=== PATIENT | female | born 1980 | race Caucasian/White ===

== ENCOUNTER 2024-03-22 00:11 | Emergency (ER) | payer OTHER, SELFPAY ==
[2024-03-22 00:21] VITALS: BP 153/74; PULSE 89; RESP 20; TEMP 36.8; O2SAT 98; BMI 21.9
--- NOTE | 2024-03-22 00:54 | ED_ITS ---
HPI - Allergic Reaction General Date Seen: 03/22/24 Chief complaint: Allergic Reaction Stated complaint: allergic reaction Time Seen by Provider: 03/22/24 00:32 Source: patient Mode of arrival: ambulatory Limitations: no limitations History of Present Illness HPI narrative: 43-year-old female with a history of allergy to bee stings who presents after being stung on her left shoulder several times today. She put on a sweatshirt and there must have been a bee inside and it is done multiple times. We discussed that this likely means that it was not to be but rather a wasp or hornet. She used a topical Benadryl and a homeopathic medication orally and presents for further evaluation. With her previous stings the reaction is always different. One time it was a local reaction because her entire legs swell. One time she had a syncopal episode and persistent tachycardia. She has never had any lip or tongue swelling or trouble breathing. She has not had those problems this time either. Related Data Allergies Allergy/AdvReac Type Severity Reaction Status Date / Time bee venom protein (honey bee) Allergy Unknown Unverified 03/22/24 01:01 Review of Systems Narrative Review of systems is as outlined above otherwise noted to be negative. PFSH PFS Social History Smoking Status: Unknown if ever smoked Do you use any of these nicotine containing products: None How often do you have a drink containing alcohol: never AUDIT-C Alcohol total score: 0 Non-prescribed substance use: denies use Exam Narrative: Exam Narrative: Vitals noted. HEENT: Conjunctiva clear. Tympanic membranes are pearly white bilaterally. Posterior pharynx is clear without erythema or exudate. No lip or tongue swelling. Neck is supple without adenopathy, thyromegaly. Lungs: Clear to auscultation in all romo. No wheezes, rales, rhonchi. Heart: Regular rate and rhythm without murmur. Extremities: No cyanosis or edema. Good distal pulses. Skin: No abnormalities noted of the exposed skin. Neurologic: Awake, alert, fully oriented. Neurologic exam is nonfocal. Const: Vital Signs, click to edit/add: Vital Signs - 24 hr 03/22/24 00:21 03/22/24 01:09 Temperature 98.3 F Pulse Rate [Left P ulse Oximeter] 89 82 Respiratory Rate 20 18 Blood Pressure [Le ft Upper Arm] 153/74 H Pulse Oximetry 98 Oxygen Delivery Me thod Room Air Course Course ED Course: Patient is seen and examined. She is given hydroxyzine 50 mg orally. She demonstrated no sign of systemic reaction to this staying. She is comfortable returning home. Vital Signs Vital signs: Initial Vital Signs Temperature 98.3 F 03/22/24 00:21 Temperature Source Temporal Artery Scan 03/22/24 00:21 Pulse Rate 89 03/22/24 00:21 Pulse Rhythm Regular 03/22/24 00:21 Respiratory Rate 20 03/22/24 00:21 Blood Pressure 153/74 H 03/22/24 00:21 Blood Pressure Mean 100 03/22/24 00:21 Blood Pressure Position Supine 03/22/24 00:21 Pulse Oximetry 98 03/22/24 00:21 Oxygen Delivery Method Room Air 03/22/24 00:21 Vital Signs Temperature 98.3 F 03/22/24 00:21 Pulse Rate 89 03/22/24 00:21 Respiratory Rate 20 03/22/24 00:21 Blood Pressure 153/74 H 03/22/24 00:21 Pulse Oximetry 98 03/22/24 00:21 Oxygen Delivery Method Room Air 03/22/24 00:21 Temperature 98.3 F 03/22/24 00:21 Pulse Rate 82 03/22/24 01:09 Respiratory Rate 18 03/22/24 01:09 Blood Pressure 153/74 H 03/22/24 00:21 Pulse Oximetry 98 03/22/24 00:21 Oxygen Delivery Method Room Air 03/22/24 00:21 Medications Administered Medications: Discontinued Medications Generic Name Dose Route Start Last Admin Trade Name Hughq PRN Reason Stop Dose Admin Hydroxyzine Pamoate 50 mg 03/22/24 00:48 03/22/24 01:00 Hydroxyzine Pamoate 25 Mg Capsule PO 03/22/24 00:49 50 mg ONCE ONE Administration Discharge Plan Discharge Clinical Impression: Allergic reaction Patient Disposition: Home, Self-Care Condition: Improved Additional Instructions: Benadryl 25 mg every 6 hours as needed for itching or swelling. Cold packs. If he develops any lip or tongue swelling or constriction of your breathing please use your EpiPen. Follow-up with your PCP to discuss RAST testing to determine which type of insect you are actually allergic to. Stand Alone Forms: Loop Trolley Info Instructions
[2024-03-22] MEDS: hydrOXYzine pamoate 25 MG CAPSULE 50 MG PO (01:00)
--- OUTSIDE RECORDS SUMMARY | 2024-03-22 01:07 | XMS_ITS | Encounter Summary ---
Author Organization [facility] Address [address] [place] [id number] Care Team Providers Care Personal Banking Assistant Name Role Phone Monica Recinos APRN GUEST SERVICES ASSISTANT Unavailable Monica Recinos APRN GUEST SERVICES ASSISTANT Primary Care Pro vider Reason for Visit * Rehab Therapy Integrated Services (Routine: Next available opening) - Referral NOT Required Specialty Diagnoses / Procedures Referred By Cathy nelson Referred To Contact Diagnoses Right wrist pain Strain of right wrist, initial encounter [address] [address] Referral ID Status Reason Start Date Expiration Date V isits Requested Visits Authorized [id number] Referral NOT Required 02/15/2024 10/08/2024 365 [id number] Encounter Details Date Type Department Care Team (Latest Contact Info) Description 02/16/2024 1:00 PM CDT Therapy Visit [facility] [id number] [place] [address] [address] [place], [place] [id number] Jr Tobias MD [address] [place] [address] DR COREY [address] [place] [phone] Nazia Danielle OT [address] [place] [phone] Right wrist pain (Primary Dx); Strain of right wrist, initial encounter Social History Tobacco Use Types Packs/Day Years Used Date Smoking Tobacco: Never Smokeless Tobacco: Never Alcohol Use Standard Drinks/Week Comments Yes 0 (1 standard drink = 0.6 oz pur e alcohol) Social Connection and Isolat ion Panel [NHANES] Answer Date Recorded Frequency of Communication w ith Friends and Family Not on file 01/03/2024 How often do you get togethe r with friends or relatives? More than three times a week 01/03/2024 Attends [employer] Services Not on file 01/02 Active Member of Clubs or Organizations Not on f ile 01/03/2024 Attends Club or Organization Meetings Not on scott e 01/03/2024 Marital Status Not on file 01/03/2024 AUDIT-C Answer Date Recorded Q1: How often do you have a drink containing alc ohol? Monthly or less 08/29/2022 Q2: How many drinks containi ng alcohol do you have on a typical day when you are drinking? 1 or 2 08/29/2022 Q3: How often do you have si x or more drinks on one occasion? Never 08/29/2022 PHQ-2 Answer Date Recorded PHQ-2 Score 0 01/03/2024 [facility] - Occupational Stress Questionnaire Answer Date Recorded Do you feel stress - tense, restless, nervous, or anxious, or unable to sleep at night because your mind is troubled all the time - these days? Not at all 01/03/2024 Exercise Vital Sign Answer Date Recorde d On average, how many days pe r week do you engage in moderate to strenuous exercise (like a brisk walk)? 7 days Minutes of Exercise per Session Not on file 01/03/2024 Adolescent Education Answer Date Record ed Getting School Help Needed Not on file 06/30 Food Insecurity Answer Date Recorded Within the past 12 months, d id you worry that your food would run out before you got money to buy more? No 01/03/2024 Within the past 12 months, d id the food you bought just not last and you didn? t have money to get more? No 01/03/2024 Housing Stability Answer Date Recorded Do you have housing? Yes 01/03/2024 Are you worried about losing your housing? No 01/03/2024 Financial Resource Strain Answer Date R ecorded Within the past 12 months, h ave you or your family members you live with been unable to get utilities (heat, electricity) when it was really needed? No 01/03/2024 Transportation Needs Answer Date Record ed Within the past 12 months, h as lack of transportation kept you from medical appointments, getting your medicines, non-medical meetings or appointments, work, or from getting things that you need? No 01/03/2024 Interpersonal Safety Answer Date Record ed Do you feel physically and e motionally safe where you currently live? Yes 01/03/2024 Within the past 12 months, h ave you been hit, slapped, kicked or otherwise physically hurt by someone? No 01/03/2024 Within the past 12 months, h ave you been humiliated or emotionally abused in other ways by your partner or ex-partner? No 01/03/2024 Sex and Gender Information Value Date Recorded Sex Assigned at Female 05/03/2022 3:21 PM CDT Gender Identity Female 05/03/2022 3:21 PM CDT Sexual Orientation Straight 05/03/2022 3: 21 PM CDT documented as of this encounter Progress Notes * Nazia Danielle, OT - 02/16/2024 1:00 PM CDT OCCUPATIONAL THERAPY EVALUATION Type of Visit: Evaluation See electronic medical record for Abuse and Falls Screening details. Subjective Presenting condition or subjective complaint: Wrist pain Date of onset: 01/31/24 (order date) Relevant medical history: Past Medical History: Diagnosis Date Abnormal Pap smear of cervix Dates & types of surgery: Past Surgical History: Procedure Laterality Date LEEP [place], CERVICAL 2005 Prior diagnostic imaging/testing results: Prior therapy history for the same diagnosis, illness or injury: No Prior Level of Function Transfers: Independent Ambulation: Independent ADL: Independent Living Environment Social support: With a significant other or spouse Type of home: House Stairs to enter the home: Yes 2 Is there a railing: No Ramp: No Stairs inside the home: Yes 10 Is there a railing: Yes Help at home: None Equipment owned: Employment: Yes Hobbies/Interests: Patient goals for therapy: Yoga and work out and garden Pain assessment: Objective ADDITIONAL HISTORY: Right hand dominant Patient reports symptoms of pain, stiffness/loss of motion, and weakness/loss of strength Transportation: drives Currently working in normal job without restrictions Functional Outcome Measure: Upper Extremity Functional Index Score: SCORE: Column Totals: /80: 70 (A lower score indicates greater disability.) PAIN: Pain Level at Rest: 0/10 Pain Level with Use: 7/10 Pain Location: wrist Pain Quality: Sharp and pinching Pain Frequency: intermittent Pain is Worst: daytime Pain is Exacerbated By: weightbearing when wrist is extended, chopping harder vegetables Pain is Relieved By: cold, stretch, and modifying activities Pain Progression: Unchanged SENSATION: WNL throughout all nerve distributions; per patient report ROM: Wrist ROM Left AROM Right AROM Extension 58 65 Flexion 60 60 Radial Deviation (RD) 13 15 Ulnar Deviation (UD) 24 30 UD with Th Flex Supination WNL WNL Pronation WNL WNL STRENGTH: Pet Resort Concierge Measured in pounds 02/16/2024 02/16/2024 Left Right Trial 1 55 57 Trial 2 Trial 3 Average Weight bearing/push-off test Measured in pounds 02/16/2024 02/16/2024 Left Right Trial 1 56 16 pre 28 post Trial 2 Trial 3 Average Lateral Pinch Measured in pounds 02/16/2024 02/16/2024 Left Right Trial 1 14 14 Trial 2 Trial 3 Average 3 Point Pinch Measured in pounds 02/16/2024 02/16/2024 Left Right Trial 1 14 14 Trial 2 Trial 3 Average Tenderness: Pain level report on scale 0-10/10 WRIST PALPATION: Date 02/16/2024 Side R Volar Scaphoid - Dorsal Scaphoid + Volar Lunate - Dorsal Lunate -/+ Central Dorsal Zone: (+ for hypermobile or - for hypomobile) Pain 0-10/10 02/16/2024 SIDE R Finger Extension Test (SL--in wrist flex, resist long ext) + Land Test (SL) - Linscheid Test (CMC joints--stabilize distal MC, mob CMC) NT Ballottement Scaphoid on Lunate + Assessment & Plan CLINICAL IMPRESSIONS Medical Diagnosis: Right wrist pain, right wrist strain Treatment Diagnosis: Right wrist pain Impression/Assessment: Pt is a 43 year old female presenting to Occupational Therapy due to gradualonset, persistent for 1 year. The following significant findings have been identified: Impaired strength and Pain. 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 Clinical Decision Making (Complexity): Assessment of Occupational Performance: 5 or more Performance Deficits Occupational Performance Limitations: bathing/showering, toileting, functional mobility, driving and community mobility, health management and maintenance, home establishment and management, meal preparation and cleanup, work, and leisure activities Clinical Decision Making (Complexity): Low complexity PLAN OF CARE Treatment Interventions: Modalities: Hot Packs and Paraffin Therapeutic Exercise: AROM, AAROM, PROM, Tendon Gliding, Blocking, Reverse Blocking, Place and Hold, Contract Relax, Extensor Tracking, Isotonics, Isometrics and Stabilization Neuromuscular re-education: Nerve Gliding, Coordination/Dexterity, Sensory re- education, Desensitization, Kinesthetic Training, Proprioceptive Training, Kinesiotaping, Strain Counter Strain, Isometrics, Stabilization Manual Techniques: Coordination/Dexterity, Joint mobilization, Scar mobilization, Friction massage,Myofascial release, and Manual edema mobilization Orthotic Fabrication: Static and Hand based Self Care: Self Care Tasks and Ergonomic Considerations Mcfp Goals OT Goal 3 Goal Identifier: ADL - bathing Goal Description: Mild to no difficulty weight bearing needed for functional transfers Rationale: In order to maximize safety and independence with functional transfers and functional mobility within the home or community Target Date: 04/12/24 Frequency of Treatment: 1x/week Duration of Treatment: 4 weeks, tapering to biweekly for 4 weeks Recommended Referrals to Other Professionals: Education Assessment: Learner/Method: Patient;Demonstration Education Comments: PTRX on phone Risks and benefits of evaluation/treatment have been explained. Patient/Family/caregiver agrees with Plan of Care. Evaluation Time: Cameron Chandler Minutes ([id number]): 28 Signing Clinician: Nazia Danielle OT documented in this encounter Plan of Treatment Not on file documented as of this encounter Visit Diagnoses Diagnosis Right wrist pain- Primary Pain in joint, forearm Strain of right wrist, initial encounter documented in this encounter Care Teams Personal Banking Assistant Relationship Specialty Start Date End Date Monica Recinos APRN GUEST SERVICES ASSISTANT [facility] [facility] [place] [address] PCP - General Internal Medicine - Pediatrics 12/10/20 Monica Recinos APRN GUEST SERVICES ASSISTANT [address] [facility] [address] [place] [id number] Assigned PCP 01/18/19 documented as of this encounter
--- OUTSIDE RECORDS SUMMARY | 2024-03-22 01:07 | XMS_ITS | Encounter Summary ---
Author Organization [facility] Address [address] [place] [address] Care Team Providers Care Nursing Attendant Name Role Phone Monica Recinos APRN MINERAL RESOURCES INSPECTOR Unavailable Monica Recinos APRN MINERAL RESOURCES INSPECTOR Primary Care Pro vider Reason for Referral * Rehab Therapy Integrated Services (Routine: Next available opening) - Referral NOT Required Specialty Diagnoses / Procedures Referred By Cathy nelson Referred To Contact Diagnoses Right wrist pain Strain of right wrist, initial encounter [address] [address] Referral ID Status Reason Start Date Expiration Date V isits Requested Visits Authorized [id number] Referral NOT Required 02/15/2024 10/08/2024 365 365 Question Answer Course of Action: Evaluation and Treatment Specialty Services: Hand Therapy Service: Evaluate and Treat Scheduling Instructions: [facility] will call you to coordinate your care as prescribed by your provider. If you don't hear from a field marketing representative within 2 business days, please call . Comments Please be aware that coverage of these services is subject to the terms and limitations of your health insurance plan. Call member services at your health plan with any benefit or coverage questions. [facility] will call you to coordinate your care as prescribed by your provider. If you don't hear from a field marketing representative within 2 business days, please call . Reason for Visit * Reason Comments Pain * Consultation (Routine) - Pending Review Specialty Diagnoses / Procedures Referred By Cathy nelson Referred To Contact Diagnoses Right wrist pain Giovanna Deshpande MD [address] [place] [address] Referral ID Status Reason Start Date Expiration Date V isits Requested Visits Authorized [id number] Pending Review 01/03/2024 01/02/2025 1 1 Encounter Details Date Type Department Care Team (Late st Contact Info) Description 01/31/2024 9:20 AM CDT Office Visit [facility] [place] [address] [place], [place] [address] Giovanna Deshpande MD [address] [place] [address] [place] [address] [place], [place] [id number] Strain of right wrist, initial encounter (Primary Dx); Right wrist pain Social History Tobacco Use Types Packs/Day Years Used Date Smoking Tobacco: Never Smokeless Tobacco: Never Tobacco Cessation:Counseling Given: Yes Alcohol Use Standard Drinks/Week Comments Yes 0 (1 standard drink = 0.6 oz pur e alcohol) Social Connection and Isolat ion Panel [NHANES] Answer Date Recorded Frequency of Communication w ith Friends and Family Not on file 01/03/2024 How often do you get togethe r with friends or relatives? More than three times a week 01/03/2024 Attends Ca[employer] Services Not on file 01/02 Active Member [...] Answer Date Recorded PHQ-2 Score 0 01/03/2024 [place] [facility] - Occupational Stress [...] PM CDT documented as of this encounter Last Filed Vital Signs Vital Sign Reading Time Taken Comments Blood Pressure 118/66 01/31/2024 9:06 AM CDT Pulse - - Temperature - - Respiratory Rate - - Oxygen Saturation - - Inhaled Oxygen Concentration - - Weight 56.7 kg (125 lb) 01/31/2024 9:06 AM CDT Height 157 cm (5' 1.81) 01/31/2024 9:06 AM CDT Body Mass Index 23 01/31/2024 9:06 AM CDT documented in this encounter Patient Instructions * Patient Instructions* Jr Tobias MD - 01/31/2024 9:20 AM CDT 1. Strain of right wrist, initial encounter 2. Right wrist pain -Patient has right wrist pain with extension due to inflammation and strain of the wrist -Patient will start formal hand therapy and home exercise program -Patient will modify her weight training workouts that was not to overstress the joints. She may purchase wrist straps or workup close with a wrist strap to stabilize her wrist while she is exercising. Patient may purchase handles to use while doing push-ups -Patient may try [id number]-[id number] topical Voltaren gel to be applied to the wrist 2-3 times a day as needed for pain. Patient will apply ice as needed for pain and inflammation -Patient will follow-up if pain does not improve -Call direct clinic number [[phone]] at any time with questions or concerns. Jr Tobias MD [facility] Orthopedics and Sports Medicine [facility] documented in this encounter Progress Notes * Jr Tobias MD - 01/31/2024 9:20 AM CDT ASSESSMENT & PLAN Patient Instructions 1. Strain of right wrist, initial encounter 2. Right wrist pain -Patient has right wrist pain with extension due to inflammation and strain of the wrist -Patient will start formal hand therapy and home exercise program -Patient will modify her weight training workouts that was not to overstress the joints. She may purchase wrist straps or workup close with a wrist strap to stabilize her wrist while she is exercising. Patient may purchase handles to use while doing push-ups -Patient may try teav-rys-[id number] topical Voltaren gel to be applied to the wrist 2-3 times a day as needed for pain. Patient will apply ice as needed for pain and inflammation -Patient will follow-up if pain does not improve -Call direct clinic number [[phone]] at any time with questions or concerns. Jr [facility] ----- SUBJECTIVE Naomi Boss is a/an 43 year old Right handed female who is seen in consultation at the request ofGiovanna Deshpande M.D. for evaluation of right wrist pain. The patient is seen by themselves. Onset: 1 years(s) ago. Reports insidious onset without acute precipitating event. Location of Pain: right dorsal wrist and right proximal lateral forearm / elbow, patient noted thatshe initially had pain in right elbow and shoulder but this has improved Rating of Pain at worst: 8/10 Rating of Pain Currently: 3/10 Worsened by: yoga / push ups (forced wrist extension), lifting weights, peeling / chopping potatoes, prolonged typing Better with: rest / activity avoidance Treatments tried: rest/activity avoidance, career center advisor (1-3x/month), and massage therapy Associated symptoms: no distal numbness or tingling; denies swelling or warmth Orthopedic history: NO Relevant surgical history: NO Social history: 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 Past Medical History: Diagnosis Date Abnormal Pap smear of cervix Social History Socioeconomic History Marital status: Single Tobacco Use Smoking status: Never Smokeless tobacco: Never Vaping Use Vaping status: Never Used Substance and Sexual Activity Alcohol use: Yes Drug use: Never Sexual activity: Not Currently Social Determinants of Health Financial Resource Strain: Low Risk (01/03/2024) Financial Resource Strain Within the past 12 months, have you or your family members you live with been unable to get utilities (heat, electricity) when it was really needed?: No Food Insecurity: Low Risk (01/03/2024) Food Insecurity Within the past 12 months, did you worry that your food would run out before you got money to buy more?: No Within the past 12 months, did the food you bought just not last and you didn???t have money to getmore?: No Transportation Needs: Low Risk (01/03/2024) Transportation Needs Within the past 12 months, has lack of transportation kept you from medical appointments, getting your medicines, non-medical meetings or appointments, work, or from getting things that you need?: No Physical Activity: Unknown (01/03/2024) Exercise Vital Sign Days of Exercise per Week: 7 days Stress: No Stress Concern Present (01/03/2024) [place] [facility] - Occupational Stress Questionnaire Feeling of Stress : Not at all Social Connections: Unknown (01/03/2024) Social Connection and Isolation Panel [NHANES] Frequency of Social Gatherings with Friends and Family: More than three times a week Interpersonal Safety: Low Risk (01/03/2024) Interpersonal Safety Do you feel physically and emotionally safe where you currently live?: Yes Within the past 12 months, have you been hit, slapped, kicked or otherwise physically hurt by someone?: No Within the past 12 months, have you been humiliated or emotionally abused in other ways by your partner or ex-partner?: No Housing Stability: Low Risk (01/03/2024) Housing Stability Do you have housing? : Yes Are you worried about losing your housing?: No Patient's past medical, surgical, social, and family histories were reviewed today and no changes are noted. REVIEW OF SYSTEMS: 10 point ROS is negative other than symptoms noted above in HPI, Past Medical History or as stated below Constitutional: NEGATIVE for fever, chills, change in weight Skin: NEGATIVE for worrisome rashes, moles or lesions GI/: NEGATIVE for bowel or bladder changes Neuro: NEGATIVE for weakness, dizziness or paresthesias OBJECTIVE: BP 118/66 Ht 1.57 m (5' 1.81) Wt 56.7 kg (125 lb) LMP 12/26/2023 BMI 23.00 kg/m?? General: healthy, alert and in no distress HEENT: no scleral icterus or conjunctival erythema Skin: no suspicious lesions or rash. No jaundice. CV: regular rhythm by palpation Resp: normal respiratory effort without conversational dyspnea Psych: normal mood and affect Gait: normal steady gait with appropriate coordination and balance Neuro: normal light touch sensory exam of the bilateral hands. MSK: RIGHT HAND Inspection: No swelling or obvious deformity or asymmetry Palpation: Carpals: normal. Tenderness at the radiocarpal joint on the dorsal aspect. Metacarpals: normal Thumb: normal Fingers: normal Range of Motion: Full active flexion and extension at MCP, PIP, and DIP joints; normal finger cascade without malrotation. Wrist pronation, supination, and ulnar/radial deviation normal. Pain at the extreme of extension. Strength: Grossly intact Special Tests: Positive: none Negative: Tinel's, Phalen's, Emil's, flexor digitorum superficialis testing, flexor digitorum profundus testing Independent visualization of the below image: No results found for this or any previous visit (from the past 24 hour(s)). Jr Tobias MD [facility] Sports and Orthopedic Care documented in this encounter Plan of Treatment Scheduled Referrals Name Type Priority Associated Diagnoses Orde r Schedule Hand Therapy Referral Referral Routine: Next available opening Right wrist pain Strain of right wrist, initial encounter Expected: 01/31/2024 (Approximate), Expires: 01/30/2025 documented as of this encounter Visit Diagnoses Diagnosis Strain of right wrist, initial encounter- Primary Right wrist pain Pain in joint, forearm documented in this encounter Care Teams Nursing Attendant Relationship Specialty Start Date End Date Monica Recinos APRN MINERAL RESOURCES INSPECTOR [facility] [place] [address] PCP - General Internal Medicine - Pediatrics 12/10/20 Monica Recinos APRN MINERAL RESOURCES INSPECTOR [facility] [place] [address] Assigned PCP 01/18/19 documented as of this encounter
--- OUTSIDE RECORDS SUMMARY | 2024-03-22 01:07 | XMS_ITS | Encounter Summary ---
Author Organization [facility] Address [address] [place] [address] Care Team Providers Care Hospice Community Liaison Name Role Phone Monica Recinos APRN ENVIRONMENTAL EPIDEMIOLOGIST Unavailable Monica Recinos APRN ENVIRONMENTAL EPIDEMIOLOGIST Primary Care Pro vider Reason for Visit * Rehab Therapy Integrated Services (Routine: Next available opening) - Referral NOT Required Specialty Diagnoses / Procedures Referred By Cathy nelson Referred To Contact Diagnoses Right wrist pain Strain of right wrist, initial encounter [address] [address] Referral ID Status Reason Start Date Expiration Date V isits Requested Visits Authorized [id number] Referral NOT Required 02/15/2024 10/08/2024 365 365 Encounter Details Date Type Department Care Team (Latest Contact Info) Description 02/23/2024 10:00 AM CDT Therapy Visit [facility] [id number] [place] [address] [address] [place], [place] [address] Jr Tobias MD [address] [place] [address] DR COREY [address] [place] [address] Nazia Danielle OT [address] [place] [id number] Right wrist pain (Primary Dx); Strain of [...] than three times a week 01/03/2024 Attends [employer]az[employer] Services Not on file 01/02 Active Member [...] Answer Date Recorded PHQ-2 Score 0 01/03/2024 [facility]at ional Health - Occupational Stress [...] PM CDT documented as of this encounter Plan of Treatment Not on file documented as of this encounter Visit Diagnoses Diagnosis Right wrist pain- Primary Pain in joint, forearm Strain of right wrist, initial encounter documented in this encounter Care Teams Hospice Community Liaison Relationship Specialty Start Date End Date Monica Recinos APRN ENVIRONMENTAL EPIDEMIOLOGIST [facility] [place] [address] PCP - General Internal Medicine - Pediatrics 12/10/20 Monica Recinos APRN ENVIRONMENTAL EPIDEMIOLOGIST [address] [place] [address] [place] [address] Assigned PCP 01/18/19 documented as of this encounter
--- OUTSIDE RECORDS SUMMARY | 2024-03-22 01:07 | XMS_ITS | Encounter Summary ---
Author Organization [facility] Address [address] [place] [address] Care Team Providers Care Track Greaser Name Role Phone Monica Recinos APRN CHAINSTITCH ZIPPER SETTER Unavailable Monica Recinos APRN CHAINSTITCH ZIPPER SETTER Primary Care Pro vider Jr Tobias MD Unavailable Reason for Referral * Diagnostic Imaging Mammo (Routine) - Pending Review Specialty Diagnoses / Procedures Referred By Contac t Referred To Contact Radiology. Diagnoses Visit for screening mammogram Procedures *[place] Screening [place] [address] [place] [id number] Referral ID Status Reason Start Date Expiration Date V isits Requested Visits Authorized [id number] Pending Review 01/03/2024 01/02/2025 1 1 Reason for Visit * Diagnostic Imaging Mammo (Routine) - Pending Review Specialty Diagnoses / Procedures Referred By Contcherise nelson Referred To Contact Radiology. Diagnoses Visit for screening mammogram Procedures *[place] Screening [place] [address] [place] [id number] Referral ID Status Reason Start Date Expiration Date V isits Requested Visits Authorized [id number] Pending Review 01/03/2024 01/02/2025 1 1 Encounter Details Date Type Department Care Team (Latest Contact Info) Description 03/06/2024 9:02 AM CDT - 03/06/2024 11:59 PM CDT Hospital Encounter [facility] [address] [facility], [address] [place] [address] Giovanna Deshpande MD [address] [place], [place] [id number] Visit for screening mammogram Discharge Disposition: Home or Self Care Social History Tobacco Use Types Packs/Day Years [...] than three times a week 01/03/2024 Attends Scientology Services Not on file 01/02 Active Member [...] Answer Date Recorded PHQ-2 Score 0 01/03/2024 [facility] Occupat ional Health - Occupational Stress [...] PM CDT documented as of this encounter Medications at Time of Discharge Medication Sig Dispensed Refills Start Date End Date EPINEPHrine (ANY BX GENERIC EQUIV) 0.3 MG/0.3ML injection 2-packIndications:Bee allergy status Inject 0.3 mLs (0.3 mg) into the muscle as needed for anaphylaxis May repeat one time in 5-15 minutes if response to initial dose is inadequate. 2 each 3 01/03/2024 vitamin B complex with vitamin C (VITAMIN B COMPLEX) tablet Take 1 tablet by mouth daily documented as of this encounter Plan of Treatment Not on file documented as of this encounter Procedures Procedure Name Priority Date/Time Associated Diagnosis Comments MA SCREENING DIGITAL BILATERAL Routine 03/06/2024 9:32 AM CDT Visit for screening mammogram documented in this encounter Results * *MA Screening Digital Bilateral (03/06/2024 9:32 AM CDT) Anatomical Region Laterality Modality Breast Bilateral Mammography Impressions 03/06/2024 2:38 PM CDT IMPRESSION: ACR BI-RADS Category 1: Negative BREAST CANCER SCREENING RECOMMENDATION: Routine yearly mammography beginning at age 40 or as discussed with your provider. The results and recommendations of this examination will be communicated to the patient. Josephine Suarez MD Narrative 03/06/2024 2:38 PM CDT BILATERAL FULL FIELD DIGITAL SCREENING MAMMOGRAM Performed on: 03/06/24 No comparisons were made when reading this study. Technique: This study was evaluated with the assistance of Computer-Aided Detection. Findings: The breasts are extremely dense, which lowers the sensitivity of mammography. ??There is no radiographic evidence of malignancy. Giovanna Deshpande MD IMG MAMMOGRAPHY [facility]I RODRIGUE[facility] documented in this encounter Visit Diagnoses Diagnosis Visit for screening mammogram Other screening mammogram documented in this encounter Care Teams Track Greaser Relationship Specialty Start Date End Date Monica Recinos APRN CHAINSTITCH ZIPPER SETTER [address] [facility] [place] [address] PCP - General Internal Medicine - Pediatrics 12/10/20 Monica Recinos APRN CHAINSTITCH ZIPPER SETTER [address] [facility] [place] [address] Assigned PCP 01/18/19 [place] [address] [address] [place] [address] Assigned Musculoskeletal Provider 02/29/24 documented as of this encounter
--- OUTSIDE RECORDS SUMMARY | 2024-03-22 01:07 | XMS_ITS | Encounter Summary ---
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 Services Not on file 01/02 Active Member [...] Answer Date Recorded PHQ-2 Score 0 01/03/2024 [facility] [place] [facility] Occupat ional Health - Occupational Stress [...] documented as of this encounter Visit Diagnoses Not on filedocumented in this encounter Care Teams Flat Folder Relationship Specialty Start Date End Date Monica Recinos APRN TRAVEL SERVICES PROFESSIONAL [address] [facility] [place] [address] PCP - General Internal Medicine - Pediatrics 12/10/20 Monica Recinos APRN TRAVEL SERVICES PROFESSIONAL [address] [facility] [place] [address] Assigned PCP 01/18/19 documented as of this encounter
--- OUTSIDE RECORDS SUMMARY | 2024-03-22 01:07 | XMS_ITS | Clinical Summary ---
Author Organization [place] Address [address] [place] [address] Care Team Providers Care Black Oxide Operator Name Role Phone Monica Recinos APRN ORNAMENT MAKER HAND Unavailable Monica Recinos APRN ORNAMENT MAKER HAND Primary Care Pro vider Jr Tobias MD Unavailable Allergies Active Allergy Reactions Criticality Noted Date Comments Bees Anaphylaxis High 03/11/2021 Medications Medication Sig Dispensed Refills Start Date End Date Status vitamin B complex with vitamin C (VITAMIN B COMPLEX) tablet Take 1 tablet by mouth daily Active EPINEPHrine (ANY BX GENERIC EQUIV) 0.3 MG/0.3ML injection 2-packIndications:Be e allergy status Inject 0.3 mLs (0.3 mg) into the muscle as needed for anaphylaxis May repeat one time in 5-15 minutes if response to initial dose is inadequate. 2 each 3 01/03/2024 Active Active Problems Problem Noted Date Diagnosed Date Right wrist pain 02/16/2024 Strain of right wrist, initial encounter 024 JOHN III (cervical intraepithelial neoplasia III) 08/29/2022 Overview: 2004 LEEP (done for JOHN 3) 01/07/14 [facility]IL pap, + HR HPV 02/2015 LSIL pap, neg HPV 03/31/14 [place] E[facility] - JOHN 1 02/06/15 LSIL pap, neg HPV 8//16 ASCUS pap, neg HPV 8/8/16 ASC-H pap, neg HPV 08/05/16 [place] Bx & ECC - negative 09/04/17 NIL Pap, Neg HPV 01/03/24 NIL Pap, Neg HPV. Plan cotest in 1 year. Abnormal Pap smear of cervix Overview: 2004 LEEP 2013 LSIL+HPV-colp JOHN 1-recommend co-testing in 1 year 02/2015 LSIL pap 04/2015 [facility] appearance on colp-no Bx 05/2016 OEF-Z-tquchydf HPV 07/2016 colp-negative ECC and Bx 2016 NIL, Neg HPV. Above per Care Everywhere 02/11/19 NIL, Neg HPV. Plan 3 yr co-test 03/11/21 NIL, Neg HPV. Plan 3 yr co-test Encounters Date Type Department Care Team Description 03/06/2024 9:02 AM CDT - 03/06/2024 11:59 PM CDT Hospital Encounter [facility] [address] [facility], [address] [place] [address] Giovanna Deshpande MD Visit for screening mammogram Discharge Disposition: Home or Self Care 03/06/2024 Travel 03/05/2024 Travel 02/23/2024 10:00 AM CDT Therapy Visit [facility] Specialty [facility] [address] [facility] [address] [place] [address] Jr Tobias MD Burch, Sophia, OT Right wrist pain (Primary Dx); Strain of right wrist, initial encounter 02/22/2024 Travel 02/16/2024 1:00 PM CDT Therapy Visit [facility] [address] [facility] [address] [place] [address] Jr Tobias MD Burch, Sophia, OT Right wrist pain (Primary Dx); Strain of right wrist, initial encounter 02/15/2024 Travel 01/31/2024 9:20 AM CDT Office Visit [facility] [place] [address] [place] [address] [address] [place] [address] Giovanna Deshpande MD Yeo, Albert, MD Strain of right wrist, initial encounter (Primary Dx); Right wrist pain 01/30/2024 Travel 01/03/2024 11:20 AM CDT Office Visit [facility] [address] [facility] [address] [place] [address] Mar Daugherty MD Routine general medical examination at a health care facility (Primary Dx); Screening for cervical cancer; Hx of abnormal cervical Pap smear; Visit for screening mammogram; Right wrist pain; Bee allergy status 01/03/2024 Travel from Last 3 Months Immunizations Name Administration Dates Next Due Anthrax 06/18/2004,06/01/2004,05/11/2004 Historical DTP/aP 07/04/1988, 5,05/25/1984,1983,12/22/1983 Influenza (H1N1) 09/11/2009 Influenza Intranasal Vaccine 07/20/2010,07/22/20 09 MMR 12/29/1993,02/23/1984 Meningococcal (Menomune??) 05/16/2003 Poliovirus, inactivated (IPV) 05/16/2003 ,07/04/1988,07/25/1985,1983,03/29/1984,12/22/1983 Small Pox (Vaccinia) 05/11/2004 TD,PF 7+ (Tenivac) 11/27/2010 TDAP (Adacel,Boostrix) 06/18/2010 Tdap (Adult) Unspecified Formulation 06/18/2010 Twinrix A/B 11/25/2003,06/23/2003,05/23/2003 Typhoid-h-p 05/11/2006,05/11/2004 Social History Tobacco Use Types Packs/Day Years [...] than three times a week 01/03/2024 Attends Mandaeism Services Not on file 01/02 Active Member [...] Answer Date Recorded PHQ-2 Score 0 01/03/2024 [facility] - Occupational Stress Questionnaire Answer [...] Orientation Straight 05/03/2022 3: 21 PM CDT Last Filed Vital Signs Vital Sign Reading Time Taken Comments Blood Pressure 118/66 01/31/2024 9:06 AM CDT Pulse 77 01/03/2024 11:25 AM CDT Temperature 36.7 ??C (98 ??F) 01/03/2024 11:25 AM CDT Respiratory Rate 24 01/03/2024 11:25 AM CDT Oxygen Saturation 99% 01/03/2024 11:25 AM CDT Inhaled Oxygen Concentration - - Weight 56.7 kg (125 lb) 01/31/2024 9:06 AM CDT Height 157 cm (5' 1.81) 01/31/2024 9:06 AM CDT Body Mass Index 23 01/31/2024 9:06 AM CDT Plan of Treatment Health Maintenance Due Date Last Done Comments GLUCOSE 1982 DTAP/TDAP/TD IMMUNIZATION (9 - Td or Tdap) 11/27/2020 11/27/2010, 06/18/2010, 06/18/2010, Additional history exists COVID-19 Vaccine ( season) 2023 ANNUAL REVIEW OF HM ORDERS 08/29/2023 08/29/2022, INFLUENZA VACCINE (Season Ended) 2024 07/20/2010, 09/11/2009, 07/22/2009 HPV FOLLOW-UP 01/02/2025 01/03/2024, 06/0 12/2020, 02/11/2019 PAP FOLLOW-UP 01/02/2025 01/03/2024, 060 12/2020, 02/11/2019, Additional history exists YEARLY PREVENTIVE VISIT 01/02/2025 01/03/20 24, 08/29/2022, 03/11/2021, Additional history exists MAMMO SCREENING 03/06/2026 03/06/2024 LIPID 03/11/2026 03/11/2021 ADVANCE CARE PLANNING 01/02/2029 01/03/2024, 021 IPV IMMUNIZATION Completed 05/16/2003, , 07/25/1985, Additional history exists MENINGITIS IMMUNIZATION Aged Out 05/16/2003 No l onger eligible based on patient's age to complete this topic HEPATITIS B IMMUNIZATION Completed 004, 06/23/2003, 05/23/2003 HIV SCREENING Addressed 02/11/2019 (Declined) Overr idden with the intention of not completing the topic HEPATITIS C SCREENING Completed 03/11/2021 PAP Discontinued 01/03/2024, 06/12/2020, 02/11/2019, Additional history exists PHQ-2 (once per calendar year) Completed 01/03/2024, 08/29/2022, 03/11/2021, Additional history exists HPV IMMUNIZATION Aged Out No longer e ligible based on patient's age to complete this topic Pneumococcal Vaccine: Pediatrics (0 to 5 Years) and At-Risk Patients (6 to 64 Years) Aged Out No longer eligible based on patient's age to complete this topic RSV MONOCLONAL ANTIBODY Aged Out No l onger eligible based on patient's age to complete this topic Procedures Procedure Name Priority Date/Time Associated Diagnosis Comments MA SCREENING DIGITAL BILATERAL Routine 03/06/2024 9:32 AM CDT Visit for screening mammogram HPV HOLD (LAB ONLY) Routine 01/03/2024 1 2:00 PM CDT Screening for cervical cancer Hx of abnormal cervical Pap smear GYNECOLOGIC CYTOLOGY Routine 01/03/2024 12:00 PM CDT Screening for cervical cancer Hx of abnormal cervical Pap smear HPV HIGH RISK TYPES DNA CERVICAL Routine 01/03/2024 12:00 PM CDT Screening for cervical cancer Hx of abnormal cervical Pap smear HEPATITIS C SCREEN REFLEX TO HCV RNA QUANT AND GENOTYPE Routine 03/11/2021 5:09 PM CDT Need for hepatitis C screening test LIPID REFLEX TO DIRECT LDL PANEL Routine 03/11/2021 5:09 PM CDT Routine general medical examination at a health care facility from Last 3 Months or Most Recently Relevant to Health Maintenance Results * *MA Screening Digital Bilateral (03/06/2024 [...] radiographic evidence of malignancy. Giovanna Deshpande MD IM MAMMOGRAPHY [facility] * HPV Hold (Lab Only) (01/03/2024 12:00 PM CDT) Brushing CERVIX UTERI STRUCTURE / Unknown Non-blood Collection / Unknown 01/03/2024 12:00 PM CDT 01/08/2024 8:03 AM CDT Giovanna Deshpande MD LAB - [facility] Organization Address City/State/ZIP Co de Phone Number [facility] [address] [facility] [address] [facility], [address] [phone] * Pap screen with HPV - recommended age 30 - 65 years (01/03/2024 12:00 PM CDT) Interpretation Negative for Intraepithelial Lesion or Malignancy (NILM) 01/05/2024 1:14 PM CDT SPECIALTY LAB[facility] Comment Papanicolaou Test Limitations: Cervical cytology is a screening test with limited sensitivity, and regular screening is critical for cancer prevention. Pap tests are primarily effective for the diagnosis/prevent ion of squamous cell carcinoma, not adenocarcinoma or other cancers. 01/05/2024 1:14 PM CDT [facility] Specimen Adequacy Satisfactory for evaluation, endocervical/weaver sformation zone component present 01/05/2024 1:14 PM CDT [facility] Clinical Information none 01/05/2024 1:14 PM CDT [facility] Reflex Testing Yes regardless of result 01/05/2024 1:14 PM CDT [facility] Previous Abnormal? No 01/05/2024 1:14 PM CDT [facility] Performing Labs The technical component of this testing was completed at [facility] 01/05/2024 1:14 PM CDT [facility] Brushing CERVIX UTERI STRUCTURE / Unknown Non-blood Collection / Unknown 01/03/2024 12:00 PM CDT 01/03/2024 1:12 PM CDT Giovanna [facility] - [facility] Specialty Lab [address] [facility], [address] [place] [phone] * HPV High Risk Types DNA Cervical (01/03/2024 12:00 PM CDT) Other HR HPV Negative Negative 01/08/2024 3:59 PM CDT [facility] HPV16 DNA Negative Negative 01/08/2024 3:59 PM CDT [facility] HPV18 DNA Negative Negative 01/08/2024 3:59 PM CDT [facility] FINAL DIAGNOSIS This patient's sample is negative for HPV DNA. This test was developed and its performance characteristics determined by the [facility], Molecular Diagnostics Laboratory. It has not been cleared or approved by the FDA. The laboratory is regulated under CLIA as qualified to perform high-complexity testing. This test is used for clinical purposes. It should not be regarded as investigational or for research. METHODOLOGY: The Reynaldo Dakota 4800 system uses automated extraction, simultaneous amplification of HPV (L1 region) and beta-globin, followed by real time detection of fluorescent labeled HPV and beta globin using specific oligonucleotide probes. The test specifically identifies types HPV 16 DNA and HPV 18 DNA while concurrently detecting the rest of the high risk types (31, 33, 35, 39, 45, 51, 52, 56, 58, 59, 66 or 68). COMMENTS: This test is not intended for use as a screening device for woman under age 30 with normal cervical cytology. Results should be correlated with cytologic and histologic findings. Close clinical followup is recommended. 01/08/2024 3:59 PM CDT [facility] Brushing CERVIX UTERI STRUCTURE / Unknown Non-blood Collection / Unknown 01/03/2024 12:00 PM CDT 01/08/2024 8:03 AM CDT Giovanna Deshpande MD LAB - BLOOD ORDERABL ES [facility] [address] [facility], [address] [id number] [place] [address] * Hepatitis C Screen Reflex to HCV RNA Quant and Genotype (03/11/2021 5:09 PM CDT) Hepatitis C Antibody Nonreactive NR^Nonre active 03/12/2021 3:51 PM CDT [facility] Comment: Assay performance characteristics have not been established for newborns, infants, and children Blood 03/11/2021 5:09 PM CDT 03/11/2021 5:19 PM CDT Monica Recinos APRN ORNAMENT MAKER HAND LAB - BLO OD ORDERABLES [address] [address] * Lipid panel reflex to direct LDL Non-fasting (03/11/2021 5:09 PM CDT) Cholesterol 173 <200 mg/dL 03/12/2021 2:30 PM CDT [facility] Triglycerides 102 <150 mg/dL 03/12/2021 2:30 PM CDT [facility] Comment:Non Fasting HDL Cholesterol 63 >49 mg/dL 2:34 PM CDT [facility] LDL Cholesterol Calculated 90 <100 mg/dL 03/12/2021 2:34 PM CDT [facility] Comment:Desirable: <100 mg/d l Non HDL Cholesterol 110 <130 mg/dL 03/12/2021 2:34 PM CDT [facility] Blood 03/11/2021 5:09 PM CDT 03/11/2021 5:19 PM CDT Monica Recinos APRN ORNAMENT MAKER HAND LAB - BLO OD ORDERABLES [facility] [address] [place] [address] from Last 3 Months or Most Recently Relevant to Health Maintenance Care Teams Black Oxide Operator Relationship Specialty Start Date End Date Monica Recinos APRN ORNAMENT MAKER HAND [address] [facility] [place] [address] PCP - General Internal Medicine - Pediatrics 12/10/20 Monica Recinos APRN ORNAMENT MAKER HAND [address] [facility] [place] [address] Assigned PCP 01/18/19 [place] [address] [place] [address] Assigned Musculoskeletal Provider 02/29/24
--- OUTSIDE RECORDS SUMMARY | 2024-03-22 01:07 | XMS_ITS | Encounter Summary ---
Author Organization [place] Address [address] [place] [address] Care Team Providers Care Apricot Packer Name Role Phone Monica Recinos APRN RESIDENTIAL CARPENTER Unavailable Monica eRcinos APRN RESIDENTIAL CARPENTER Primary Care Pro vider Encounter Details Date Type Department Care Team (Latest Contact Info) Description 02/15/2024 Travel Social History Tobacco Use Types Packs/Day [...] than three times a week 01/03/2024 Attends [employer] Not on file 01/02 Active Member [...] Answer Date Recorded PHQ-2 Score 0 01/03/2024 [facility] [place] of Occupat ional Health - Occupational Stress [...] on filedocumented in this encounter Care Teams Apricot Packer Relationship Specialty Start Date End Date Monica Recinos APRN RESIDENTIAL CARPENTER [address] [facility] [place] [address] PCP - General Internal Medicine - Pediatrics 12/10/20 Monica Recinos APRN RESIDENTIAL CARPENTER [address] [facility] [place] [address] Assigned PCP 01/18/19 documented as of this encounter
--- OUTSIDE RECORDS SUMMARY | 2024-03-22 01:07 | XMS_ITS | Encounter Summary ---
Author Organization [place] Address [address] [place] [address] Care Team Providers Care Morals Squad Police Officer Name Role Phone Monica Recinos APRN GRAIN CLEANER AND TRANSFER OPERATOR Unavailable Monica Recinos APRN GRAIN CLEANER AND TRANSFER OPERATOR Primary Care Pro vider Jr Tobias MD Unavailable Encounter Details Date Type Department Care Team (Latest Contact Info) Description 03/06/2024 Travel Social History Tobacco Use Types Packs/Day [...] than three times a week 01/03/2024 Attends Hinduism Services Not on file 01/02 Active Member [...] Answer Date Recorded PHQ-2 Score 0 01/03/2024 [place] of Occupat ional Health - Occupational Stress [...] on filedocumented in this encounter Care Teams Morals Squad Police Officer Relationship Specialty Start Date End Date Monica Recinos APRN GRAIN CLEANER AND TRANSFER OPERATOR [facility] [place] [address] PCP - General Internal Medicine - Pediatrics 12/10/20 Monica Recinos APRN GRAIN CLEANER AND TRANSFER OPERATOR [address] [place] [address] [place] [address] Assigned PCP 01/18/19 [place] [address] [place] [address] Assigned Musculoskeletal Provider 02/29/24 documented as of this encounter
--- OUTSIDE RECORDS SUMMARY | 2024-03-22 01:07 | XMS_ITS | Encounter Summary ---
Author Organization [place] Address [address] [place] [address] Care Team Providers Care Staffing Administrator Name Role Phone Monica Recinos APRN ELECTRICIAN RADIO Unavailable Monica Recinos APRN ELECTRICIAN RADIO Primary Care Pro vider Jr Tobias MD Unavailable Encounter Details Date Type Department Care Team (Latest Contact Info) Description 03/05/2024 Travel Social History Tobacco Use Types Packs/Day [...] Answer Date Recorded PHQ-2 Score 0 01/03/2024 Citizen Of [place] of Occupat ional Health - Occupational Stress [...] on filedocumented in this encounter Care Teams Staffing Administrator Relationship Specialty Start Date End Date Monica Recinos APRN ELECTRICIAN RADIO [facility] [place] [address] PCP - General Internal Medicine - Pediatrics 12/10/20 Monica Recinos APRN ELECTRICIAN RADIO [address] [place] [address] [place] [address] Assigned PCP 01/18/19 [place] [address] [place] [address] Assigned Musculoskeletal Provider 02/29/24 documented as of this encounter
--- OUTSIDE RECORDS SUMMARY | 2024-03-22 01:07 | XMS_ITS | Referral Summary ---
Author Organization [place] Address [address] [place] [address] Care Team Providers Care Software Support Specialist Name Role Phone Monica Recinos APRN CORNER FORMER Unavailable Monica Recinos CHEESE PROCESSOR CORNER FORMER Primary Care Pro vider Jr Tobias MD Unavailable Encounters Date Type Department Care Team Description 03/06/2024 Travel 03/06/2024 9:02 AM CDT - 03/06/2024 11:59 PM CDT Hospital Encounter [facility] [address] [facility], [address] [place] [phone] Giovanna Deshpande MD Visit for screening mammogram Discharge Disposition: Home or Self Care 03/05/2024 Travel 02/23/2024 10:00 AM CDT Therapy Visit [facility] [address] [facility] [address] [place] [address] Jr Tobias MD Burch, Sophia, OT Right wrist pain (Primary Dx); Strain of right wrist, initial encounter 02/22/2024 Travel 02/16/2024 1:00 PM CDT Therapy Visit [facility] [address] [facility] [address] [place] [address] Jr Tobias MD Burch, Sophia, OT Right wrist pain (Primary Dx); Strain of right wrist, initial encounter 02/15/2024 Travel 01/31/2024 9:20 AM CDT Office Visit [facility] [place] [address] [facility] [address] [place], [place] [address] Giovanna Deshpande MD Yeo, Albert, MD Strain of right wrist, initial encounter (Primary Dx); Right wrist pain 01/30/2024 Travel 01/03/2024 Travel 01/03/2024 11:20 AM CDT Office Visit [facility] [address] [facility] [address] [place] [address] Mar Daugherty MD Routine general medical examination at a health care facility (Primary Dx); Screening for cervical cancer; Hx of abnormal cervical Pap smear; Visit for screening mammogram; Right wrist pain; Bee allergy status from Last 3 Months Allergies Active Allergy Reactions Criticality Noted Date [...] HPV 02/2015 [facility] pap, neg HPV 03/31/14 [place] [facility] - JOHN 1 02/06/15 [facility] pap, neg HPV 8//16 ASCUS pap, neg HPV 8/8/16 ASC-H pap, neg HPV 08/05/ [place] Bx & ECC - negative 09/04/17 NIL Pap, Neg HPV 01/03/24 NIL Pap, Neg HPV. Plan cotest in 1 year. Abnormal Pap smear of cervix Overview: 2004 LEEP 2013 LSIL+HPV-colp JOHN 1-recommend co-testing in 1 year 02/2015 LSIL pap 04/2015 LSIL appearance on colp-no Bx 05/2016 WFL-B-nshrsmas HPV 07/2016 colp-negative ECC and Bx 2016 NIL, Neg HPV. Above per Care Everywhere 02/11/19 NIL, Neg HPV. Plan 3 yr co-test 03/11/21 NIL, Neg HPV. Plan 3 yr co-test Immunizations Name Administration Dates Next Due Anthrax [...] than three times a week 01/03/2024 Attends Amish Services Not on file 01/02 Active Member [...] Answer Date Recorded PHQ-2 Score 0 01/03/2024 [facility] - Occupational Stress Questionnaire Answer [...] 01/31/2024 9:06 AM CDT Plan of Treatment Not on file Procedures Procedure Name Priority Date/Time Associated Diagnosis [...] of malignancy. Giovanna Deshpande MD IMG MAMMOGRAPHY [facility]DE [facility] * HPV Hold (Lab Only) (01/03/2024 12:00 PM CDT) Brushing CERVIX UTERI STRUCTURE / Unknown Non-blood Collection / Unknown 01/03/2024 12:00 PM CDT 01/08/2024 8:03 AM CDT Giovanna Deshpande MD [facility] Organization Address City/State/ZIP Co de Phone Number [facility]CULAR DI[facility]ST[facility] [address] [facility], [address] [phone] * Pap screen with HPV [...] component of this testing was completed at [facility] 01/05/2024 1:14 PM CDT SPECIALTY LABS Brushing CERVIX UTERI STRUCTURE / Unknown Non-blood Collection / Unknown 01/03/2024 12:00 PM CDT 01/03/2024 1:12 PM CDT Giovanna [facility] Specialty Lab [address] [facility], [address] [phone] * HPV High Risk Types [...] and its performance characteristics determined by the [facility], Molecular Diagnostics Laboratory. It has not been [...] ORDERABL ES [facility] [address] [facility], [address] [id number] [place] [address] * Hepatitis C Screen Reflex to HCV RNA Quant and Genotype (03/11/2021 5:09 PM CDT) Hepatitis C Antibody Nonreactive NR^Nonre active 03/12/2021 3:51 PM CDT [facility] Comment: Assay performance characteristics have not been established for newborns, infants, and children Blood 03/11/2021 5:09 PM CDT 03/11/2021 5:19 PM CDT Monica Recinos APRN, CNP LAB - BLO OD ORDERABLES [facility] [address] [place] [address] * Lipid panel reflex to direct LDL Non-fasting (03/11/2021 5:09 PM CDT) Cholesterol 173 <200 mg/dL 03/12/2021 2:30 PM CDT [facility] Triglycerides 102 <150 mg/dL 03/12/2021 2:30 PM CDT [facility] Comment:Non Fasting HDL Cholesterol 63 >49 mg/dL 2:34 PM CDT [facility] LDL Cholesterol Calculated 90 <100 mg/dL 03/12/2021 2:34 PM CDT [facility] Comment:Desirable: <100 mg/d l Non HDL Cholesterol 110 <130 mg/dL 03/12/2021 2:34 PM CDT [facility] Blood 03/11/2021 5:09 PM CDT 03/11/2021 5:19 PM CDT Monica Recinos APRN CORNER FORMER LAB - BLO OD ORDERABLES Performing Organization Address City/State/[facility] Co de Phone Number [facility] [address] [place] [address] from Last 3 Months or Most Recently Relevant to Health Maintenance Care Teams Software Support Specialist Relationship Specialty Start Date End Date Monica Recinos APRN CORNER FORMER [facility]5 [facility] [place] [address] PCP - General Internal Medicine - Pediatrics 12/10/20 Monica Recinos APRN CNP [address] [facility] [place] [address] Assigned PCP 01/18/19 [place] [address] [place] [address] Assigned Musculoskeletal Provider 02/29/24
--- OUTSIDE RECORDS SUMMARY | 2024-03-22 01:08 | XMS_ITS | Encounter Summary ---
Author Organization [place] Address [address] [place] [address] Care Team Providers Care Dealmaker Name Role Phone Monica Recinos APRN MIXER OPERATOR HOT METAL Unavailable Monica Recinos APRN MIXER OPERATOR HOT METAL Primary Care Pro vider Encounter Details Date Type Department Care Team (Latest Contact Info) Description 01/30/2024 Travel Social History Tobacco Use Types Packs/Day [...] than three times a week 01/03/2024 Attends Mu-Ism Services Not on file 01/02 Active Member [...] Answer Date Recorded PHQ-2 Score 0 01/03/2024 [facility] [place] of Occupat ional Health - Occupational Stress [...] on filedocumented in this encounter Care Teams Dealmaker Relationship Specialty Start Date End Date Monica Recinos APRN MIXER OPERATOR HOT METAL [address] [facility] [place] [address] PCP - General Internal Medicine - Pediatrics 12/10/20 Monica Recinos APRN MIXER OPERATOR HOT METAL [address] [facility] [place] [address] Assigned PCP 01/18/19 documented as of this encounter
--- OUTSIDE RECORDS SUMMARY | 2024-03-22 01:08 | XMS_ITS | Continuity of Care Document ---
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 ------- -- flumist SARTHAK SUMMERS 09/10 Released w/o Limitations [place]([facility] Immun[facility]) [place]) OUTPATIENT [id number] MECHE PALM 10/31 Released w/o Limitations [place]) [place]) TELE CONSULT [id number] PIPPA POLLOCK 11/02 [place]) [place]) TELE CONSULT [id number] Notes Entered by: Alcon TREADWELL 11 Jan 2013 1403 ------- ------- ------- ------- -- MEDICAT ION RENEWAL PIPPA POLLOCK 01/11 [place] [place] OUTPATIENT [id number] Notes Entered by: SARTHAK SUMMERS 08 Aug 2013 1311 ------- ------- ------- ------- -- flumist SARTHAK SUMMERS 08/08 Released w/o Limitations [place]) Procedures Combined list of: 1) Procedures from Department of Veterans Affairs facilities going back up to thelast 18 months, not all VA non-surgical procedures are included; 2) All procedures from the Department of Defense facilities. Procedure Procedure Type Code Date Perfomer Comments Sour e Influenza Virus Vaccine Live Attenuated Intranasal Quadrivalent Influenza Virus Vaccine Live Attenuated Intranasal Quadrivalent 33637 [facility] By Intranasal / Oral Route One Vaccine Immunization Admin By Intranasal / Oral Route One Vaccine 66974 2012 [facility] Influenza Virus Vaccine Intranasal Live Attenuated [facility] Admin By Intranasal / Oral Route One Vaccine Immunization Admin By Intranasal / Oral Route One Vaccine 97565 2011 [facility] Screening papanicolaou smear; obtaining, preparing and conveyance of cervical or vaginal smear to laboratory 2011 ANSHU JEFF [facility] Non-Physician Phone Call To Patient/Provider Brief (5-10min) Non-Physician Phone Call To Patient/Provider Brief (5-10min) [id number] 2011 LUKAS CISNEROS [facility] Gynecologic Services Intrauterine Device (IUD) Removal Gynecologic Services Intrauterine Device (IUD) Removal 55681 2010 LOUISE SOMERS [facility] OB Services Antepartum Care Only Subsequent Single Visit OB Services Antepartum Care Only Subsequent Single Visit 0502F 2007 DANIAT KULKARNI [facility] OB Services Antepartum Care Only Subsequent Single Visit OB Services Antepartum Care Only Subsequent Single Visit 0502F 2007 LESLY MCKEON [facility] OB Services Antepartum Care Only Subsequent Single Visit OB Services Antepartum Care Only Subsequent Single Visit 0502F 2007 DANITA KULKARNI [facility] OB Services Antepartum Care Only Subsequent Single Visit OB Services Antepartum Care Only Subsequent Single Visit 0502F 2007 LESLY MCKEON [facility] Psychiatric Diagnostic Evaluation Review of Records and Reports Psychiatric Diagnostic Evaluation Review of Records and Reports 99553 2007 LINH BLOCK [facility] Medical Nutrition Therapy Group (2 or More Individuals) Each 30 Minutes Medical Nutrition Therapy Group (2 or More Individuals) Each 30 Minutes [id number] 2007 TATUM LYNCH [facility] Ultrasound Trans[place] [address] 2007 BART RODRIGUEZ [facility] OB Services Antepartum Care Only First Visit, With Report OB Services Antepartum Care Only First Visit, With Report 0500F 2007 EDIS ALFARO [facility] Colposcopy Cervix With Biopsy Colposcopy Cervix With Biopsy 79990 2006 BART RODRIGUEZ [facility] Psychotherapy Individual Approximately 45 Minutes Psychotherapy Individual Approximately 45 Minutes 68462 2006 KELY ACOSTA Psychiatric Therapy Marital 2006 KELY ACOSTA Physician Supervised Specimen Handling / Transfer: Office To Lab Physician Supervised Specimen Handling / Transfer: Office To Lab 99925 2006 AMADA LEPE [facility] Screening papanicolaou smear; obtaining, preparing and conveyance of cervical or vaginal smear to laboratory 2006 AMADA LEPE Psychiatric Therapy Marital 2006 KELY ACOSTA [facility] Physical Therapy Service Re-Evaluation Physical Therapy Service Re-Evaluation 36677 2006 TONE QUINTANA [facility] Psychiatric Therapy Marital 2006 KELY ACOSTA Modalities Heat Hot Packs Modalities Heat Hot Packs 49450 2006 RAFA, UMM T DoD Modalities Ultrasound Modalities Ultrasound 80295 2006 RAFA, UMM T DoD Modalities Heat Hot Packs Modalities Heat Hot Packs 24711 2006 RAFA, UMM T DoD Modalities Ultrasound Modalities Ultrasound 28587 2006 RAFA, UMM T DoD Psychiatric Therapy Marital 2006 KELY ACOSTA Modalities Heat Hot Packs Modalities Heat Hot Packs 07673 2006 RAFA, UMM T DoD Modalities Ultrasound Modalities Ultrasound 91304 2006 RAFA, UMM T DoD Modalities Heat Hot Packs Modalities Heat Hot Packs 73399 2006 RAFA, UMM T DoD Modalities Ultrasound Modalities Ultrasound 32255 2006 RAFA, UMM T DoD Modalities Heat Hot Packs Modalities Heat Hot Packs 31925 2006 RAFA, UMM T DoD Modalities Ultrasound Modalities Ultrasound 44882 2006 RAFA, UMM T DoD Modalities Heat Hot Packs Modalities Heat Hot Packs 36270 2006 RAFA, UMM T DoD Modalities Ultrasound Modalities Ultrasound 82944 2006 RAFA, UMM T DoD Modalities Heat Hot Packs Modalities Heat Hot Packs 88005 2006 RAFA, UMM T DoD Modalities Ultrasound Modalities Ultrasound 14615 2006 RAFA, UMM Lara DoD Physical Therapy Service Re-Evaluation Physical Therapy Service Re-Evaluation 40443 2006 TONE QUINTANA DoD Modalities Heat Hot Packs Modalities Heat Hot Packs 93602 2006 RAFA, UMM T DoD Modalities Ultrasound Modalities Ultrasound 78634 2006 RAFA, UMM Lara DoD Psychiatric Diagnostic Evaluation Comprehensive Examination Psychiatric Diagnostic Evaluation Comprehensive Examination 06237 2006 KELY ACOSTA DoD Modalities Heat Hot Packs Modalities Heat Hot Packs 19435 2006 RAFA, UMM T DoD Modalities Ultrasound Modalities Ultrasound 05952 2006 RAFA, UMM T DoD Modalities Heat Hot Packs Modalities Heat Hot Packs 60057 2006 DUSTY, MIRACLE F DoD Modalities Ultrasound Modalities Ultrasound 71177 2006 DUSTY, MIRACLE F DoD Modalities Heat Hot Packs Modalities Heat Hot Packs 18043 2006 DUSTY, MIRACLE F DoD Modalities Ultrasound Modalities Ultrasound 37446 2006 DUSTY, MIRACLE F DoD Modalities Heat Hot Packs Modalities Heat Hot Packs 89356 2006 DUSTY, MIRACLE F DoD Modalities Ultrasound Modalities Ultrasound 71535 2006 DUSTY, MIRACLE F DoD Modalities Ultrasound Modalities Ultrasound 47710 2006 RAFA, UMM T DoD Modalities Heat Hot Packs Modalities Heat Hot Packs 27720 2006 RAAF, UMM T DoD Physical Therapy: ___ Se ion Segments, 15 Minutes Each Physical Therapy: ___ Session Segments, 15 Minutes Each 27567 2006 TONE QUINTANA Physical Therapy Service Evaluation Physical Therapy Service Evaluation 37350 2006 TONE QUINTANA [facility] Ophthalmological New Patient Start Comprehensive Care Ophthalmological New Patient Start Comprehensive Care 42017 2006 EDITH CAMPA Determination Of Refractive State Determination Of Refractive State 15444 2006 EDITH CAMPA Cervical Pap Smear Cervical Pap Smear 70362 2006 BART RODRIGUEZ Colposcopy Cervix With Biopsy(s) With Endocervical Curettage Colposcopy Cervix With Biopsy(s) With Endocervical Curettage 83186 2006 BART RODRIGUEZ Physician Supervised Specimen Handling / Transfer: Office To Lab Physician Supervised Specimen Handling / Transfer: Office To Lab 26037 2006 ISABEL VIDAL Screening papanicolaou smear; obtaining, preparing and conveyance of cervical or vaginal smear to laboratory 2006 ISABEL VIDAL Modalities Ultrasound Modalities Ultrasound 36320 2006 TAMARA GAMBOA Physical Therapy Mobilization Joint Physical Therapy Mobilization Joint 46571 2005 WESLY BRUCE Modalities Ultrasound Modalities Ultrasound 37417 2005 WESLY BRUCE Physical Therapy Mobilization Joint Physical Therapy Mobilization Joint 70390 2005 TAMARA GAMBOA Modalities Ultrasound Modalities Ultrasound 91056 2005 TAMARA GAMBOA Modalities Ultrasound Modalities Ultrasound 60499 2005 TAMARA GAMBOA Physical Therapy Mobilization Joint Physical Therapy Mobilization Joint 08757 2005 TAMARA GAMBOA Mobilization Soft Ti ue Mobilization Soft Tissue 57013 2005 VIKTORIA SHETH Physical Therapy Service Re-Evaluation Physical Therapy Service Re-Evaluation 49254 2005 VIKTORIA SHETH Modalities Ultrasound Modalities Ultrasound 67035 2005 TAMARA GAMBOA Modalities Ultrasound Modalities Ultrasound 30243 2005 TAMARA GAMBOA Modalities Ultrasound Modalities Ultrasound 88452 2005 WESLY BRUCE Mobilization Soft Ti ue Mobilization Soft Tissue 90229 2005 VIKTORIA SHETH [facility] Modalities Ultrasound Modalities Ultrasound 47153 2005 VIKTORIA SHETH Radha 50% 3Mhz, 1.0 x 8min followed by TFM x 3 min [facility] Physical Therapy Service Re-Evaluation Physical Therapy Service Re-Evaluation 16612 2005 VIKTORIA SHETH [facility] Physical Therapy Neuromuscular Re-education Physical Therapy Neuromuscular Re-education 04147 2005 TAMARA GAMBOA [facility] Physical Therapy: ___ Se ion Segments, 15 Minutes Each Physical Therapy: ___ Session Segments, 15 Minutes Each 76050 2005 TAMARA GAMBOA [facility] PT A e ment Kinetic Training PT Assessment Kinetic Training 04322 2005 WESLY BRUCE Physical Therapy Neuromuscular Re-education Physical Therapy Neuromuscular Re-education 07562 2005 WESLY BRUCE [facility] Physical Therapy: ___ Se ion Segments, 15 Minutes Each Physical Therapy: ___ Session Segments, 15 Minutes Each 85623 2005 WESLY BRUCE Phys Therapy Education Self Care Training - Per 15 Minutes Phys Therapy Education Self Care Training - Per 15 Minutes 81765 2005 [facility] Physical Therapy: ___ Se ion Segments, 15 Minutes Each Physical Therapy: ___ Session Segments, 15 Minutes Each 25816 2005 VIKTORIA SHETH towel crunches/extensio n, self mobs, AAROM, PROM, desensitization training [facility] Mobilization Soft Ti ue Mobilization Soft Tissue 26470 2005 VIVIANAVIKTORIA scar massage, desensitization [facility] Physical Therapy Service Evaluation Physical Therapy Service Evaluation 29645 2005 VIKTORIA SHETH [facility] Colposcopy Cervix With Biopsy(s) With Endocervical Curettage Colposcopy Cervix With Biopsy(s) With Endocervical Curettage 10753 2005 ISABEL VIDAL [facility] Psychiatric Diagnostic Evaluation Review of Records and Reports Psychiatric Diagnostic Evaluation Review of Records and Reports 16724 2005 ALCON CARDENAS [facility] Vaginal Wet Mount Smear Vaginal Wet [place] Smear 30811 2004 HERON HARPER [facility] Screening papanicolaou smear; obtaining, preparing and conveyance of cervical or vaginal smear to laboratory 2004 HERON HARPER [facility] Colposcopy With Biopsy Colposcopy With Biopsy 68197 2003 HERON HARPER [facility] Screening papanicolaou smear; obtaining, preparing and conveyance of cervical or vaginal smear to laboratory HERON HARPER [facility] Cervical Culture Chlamydia trachomatis Cervical Culture Chlamydia trachomatis 02357 HERON HARPER [facility] SCREENING PAPANICOLAOU SMEAR; OBTAINING, PREPARING AND CONVEYANCE OF CERVICAL OR VAGINAL SMEAR TO LABORATORY 2011 DoD TELE ASSESS & MGT SRV PROV QUAL NONPHYS HLTH CARE PRO TO EST PAT,PARENT,GUARD NOT ORIG REL ASSESS & MGT SRV PROV W/IN PREV 7 DAYS NOR LEAD ASSESS & MGT SRV/PX W/IN NXT 24 HR/SOON APT;5-10 MIN MED DIS 2011 DoD REMOVAL OF INTRAUTERINE DEVICE (IUD) 2010 DoD HANDLING AND/OR CONVEYANCE OF SPECIMEN FOR TRANSFER FROM THE OFFICE TO A LABORATORY 2006 DoD APPLICATION OF A MODALITY TO 1 OR MORE AREAS; ULTRASOUND, EACH 15 MINUTES 2006 DoD MANUAL THERAPY TECHNIQUES (EG, MOBILIZATION/ MANIPULATION, MANUAL LYMPHATIC DRAINAGE, MANUAL TRACTION), 1 OR MORE REGIONS, EACH 15 MINUTES 2005 DoD APPLICATION OF A MODALITY TO 1 OR MORE AREAS; ULTRASOUND, EACH 15 MINUTES 2005 DoD APPLICATION OF A MODALITY TO 1 OR MORE AREAS; ULTRASOUND, EACH 15 MINUTES 2005 DoD MANUAL THERAPY TECHNIQUES (EG, MOBILIZATION/ MANIPULATION, MANUAL LYMPHATIC DRAINAGE, MANUAL TRACTION), 1 OR MORE REGIONS, EACH 15 MINUTES 2005 DoD APPLICATION OF A MODALITY TO 1 OR MORE AREAS; ULTRASOUND, EACH 15 MINUTES 2005 DoD APPLICATION OF A MODALITY TO 1 OR MORE AREAS; ULTRASOUND, EACH 15 MINUTES 2005 DoD APPLICATION OF A MODALITY TO 1 OR MORE AREAS; ULTRASOUND, EACH 15 MINUTES 2005 DoD MANUAL THERAPY TECHNIQUES (EG, MOBILIZATION/ MANIPULATION, MANUAL LYMPHATIC DRAINAGE, MANUAL TRACTION), 1 OR MORE REGIONS, EACH 15 MINUTES 2005 DoD THERAPEUTIC PROCEDURE,1 OR MORE AREAS,EACH 15 MINUTES;NEUROMUSCULA R REEDUCATION OF MOVEMENT,BALANCE,LAND SURVEYING SURVEY WORKER RDINATION,KINESTHETI C SENSE,POSTURE,AND/OR PROPRIOCEPTION FOR SITTING AND/OR STANDING ACTIVITIES 2005 DoD THERAPEUTIC ACTIVITIES, DIRECT (ONE-ON-ONE) PATIENT CONTACT (USE OF DYNAMIC ACTIVITIES TO IMPROVE FUNCTIONAL PERFORMANCE), EACH 15 MINUTES 2005 DoD SELF-CARE/HOME MANAGMENT TRAIN (EG,ACT OF DAILY LIVING (ADL) &COMPENSAT TRAIN,MEAL PREPARATION,SAFETY PROCS,AND INSTRUCT IN USE OF ASST TECHNOLOGY DEV/ADPT EQUIP) DIR ONE-ON-ONE CONT,EA 15 MINUTES 2005 [facility] COLPOSCOPY OF THE CERVIX INCLUDING UPPER/ADJACENT VAGINA; WITH BIOPSY(S) OF THE CERVIX AND ENDOCERVICAL CURETTAGE 2005 [facility] COLPOSCOPY OF THE CERVIX INCLUDING UPPER/ADJACENT VAGINA; WITH BIOPSY(S) OF THE CERVIX 2005 [facility] PSYCHIATRIC EVALUATION OF HOSPITAL RECORDS, OTHER PSYCHIATRIC REPORTS, PSYCHOMETRIC AND/OR PROJECTIVE TESTS, AND OTHER ACCUMULATED DATA FOR MEDICALDIAGNOSTIC PURPOSES 2004 [facility] SCREENING PAPANICOLAOU SMEAR; OBTAINING, PREPARING AND CONVEYANCE OF CERVICAL OR VAGINAL SMEAR TO LABORATORY 2004 [facility] CULTURE, CHLAMYDIA, ANY SOURCE 2004 [facility] COLPOSCOPY OF THE CERVIX INCLUDING UPPER/ADJACENT VAGINA; WITH BIOPSY(S) OF THE CERVIX AND ENDOCERVICAL CURETTAGE 2003 [facility] INFLUENZA VIRUS VACCINE, QUADRIVALENT, LIVE (LAIV4), FOR INTRANASAL USE 2012 [facility] INFLUENZA VIRUS VACCINE, TRIVALENT, LIVE (LAIV3), FOR INTRANASAL USE 2011 [facility] REPAIR OF OTHER CURRENT OBSTETRIC LACERATION 2007 [facility] OTHER VACUUM EXTRACTION 2007 [facility] SUBSEQ CARE VISIT () [EXCLS:PATIENTS WHO ARE SEEN FOR A CONDITION UNREL TO / CARE (EG,AN UP RESPIR INFECT;PATIENTS SEEN FOR CONSULTATION ONLY,NOT FOR CONT CARE)] 2007 [facility] SUBSEQ CARE VISIT () [EXCLS:PATIENTS WHO ARE SEEN FOR A CONDITION UNREL TO / CARE (EG,AN UP RESPIR INFECT;PATIENTS SEEN FOR CONSULTATION ONLY,NOT FOR CONT CARE)] 2007 [facility] SUBSEQ CARE VISIT () [EXCLS:PATIENTS WHO ARE SEEN FOR A CONDITION UNREL TO / CARE (EG,AN UP RESPIR INFECT;PATIENTS SEEN FOR CONSULTATION ONLY,NOT FOR CONT CARE)] 2007 [facility] SUBSEQ CARE VISIT () [EXCLS:PATIENTS WHO ARE SEEN FOR A CONDITION UNREL TO / CARE (EG,AN UP RESPIR INFECT;PATIENTS SEEN FOR CONSULTATION ONLY,NOT FOR CONT CARE)] 2007 [facility] PSYCHIATRIC EVALUATION OF HOSPITAL RECORDS, OTHER PSYCHIATRIC REPORTS, PSYCHOMETRIC AND/OR PROJECTIVE TESTS, AND OTHER ACCUMULATED DATA FOR MEDICALDIAGNOSTIC PURPOSES 2007 [facility] MEDICAL NUTRITION THERAPY; GROUP (2 OR MORE INDIVIDUAL(S)), EACH 30 MINUTES 2007 [facility] ULTRASOUND, UTERUS, REAL TIME WITH IMAGE DOCUMENTATION,TRANSV AGINAL 2007 [facility] INITIAL CARE VISIT (REPORT AT 1ST ENCOUN W HEALTH FILM PROCESSING SUPERVISOR PROVIDING OBSTETRIC CARE. REPORT ALSO DATE OF VISIT &,IN A SEPARATE FIELD,THE DATE OF THE LAST MENSTRUAL PERIOD) 2007 [facility] COLPOSCOPY OF THE CERVIX INCLUDING UPPER/ADJACENT VAGINA; WITH BIOPSY(S) OF THE CERVIX 2006 [facility] INDIVIDUAL PSYCHOTHERAPY, INSIGHT ORIENTED, BEHAVIOR MODIFYING AND/OR SUPPORTIVE, IN AN OFFICE OR OUTPATIENT FACILITY, APPROXIMATELY 45 TO 50 MINUTES [id number] WITH THE PATIENT 2006 DoD FAMILY PSYCHOTHERAPY (CONJOINT PSYCHOTHERAPY) (WITH PATIENT PRESENT), 50 MINUTES 2006 DoD HANDLING AND/OR CONVEYANCE OF SPECIMEN FOR TRANSFER FROM THE OFFICE TO A LABORATORY 2006 DoD FAMILY PSYCHOTHERAPY (CONJOINT PSYCHOTHERAPY) (WITH PATIENT PRESENT), 50 MINUTES 2006 DoD PHYSICAL THERAPY RE-EVALUATION 2006 DoD FAMILY PSYCHOTHERAPY (CONJOINT PSYCHOTHERAPY) (WITH PATIENT PRESENT), 50 MINUTES 2006 DoD APPLICATION OF A MODALITY TO 1 OR MORE AREAS; ULTRASOUND, EACH 15 MINUTES 2006 DoD APPLICATION OF A MODALITY TO 1 OR MORE AREAS; HOT OR COLD PACKS 2006 DoD FAMILY PSYCHOTHERAPY (CONJOINT PSYCHOTHERAPY) (WITH PATIENT PRESENT), 50 MINUTES 2006 DoD APPLICATION OF A MODALITY TO 1 OR MORE AREAS; HOT OR COLD PACKS 2006 DoD APPLICATION OF A MODALITY TO 1 OR MORE AREAS; HOT OR COLD PACKS 2006 DoD APPLICATION OF A MODALITY TO 1 OR MORE AREAS; HOT OR COLD PACKS 2006 DoD APPLICATION OF A MODALITY TO 1 OR MORE AREAS; HOT OR COLD PACKS 2006 DoD APPLICATION OF A MODALITY TO 1 OR MORE AREAS; HOT OR COLD PACKS 2006 DoD PHYSICAL THERAPY RE-EVALUATION 2006 DoD APPLICATION OF A MODALITY TO 1 OR MORE AREAS; HOT OR COLD PACKS 2006 DoD PSYCHIATRIC DIAGNOSTIC INTERVIEW EXAMINATION 2006 DoD APPLICATION OF A MODALITY TO 1 OR MORE AREAS; HOT OR COLD PACKS 2006 DoD APPLICATION OF A MODALITY TO 1 OR MORE AREAS; HOT OR COLD PACKS 2006 DoD APPLICATION OF A MODALITY TO 1 OR MORE AREAS; HOT OR COLD PACKS 2006 DoD APPLICATION OF A MODALITY TO 1 OR MORE AREAS; HOT OR COLD PACKS 2006 [facility] APPLICATION OF A MODALITY TO 1 OR MORE AREAS; ULTRASOUND, EACH 15 MINUTES 2006 [facility] THERAPEUTIC PROCEDURE, 1 OR MORE AREAS, EACH 15 MINUTES; THERAPEUTIC EXERCISES TO DEVELOP STRENGTH AND ENDURANCE, RANGE OF MOTION AND FLEXIBILITY 2006 [facility] DETERMINATION OF REFRACTIVE STATE 2006 DoD CYTOPATHOLOGY, SMEARS, CERVICAL OR VAGINAL, UP TO THREE SMEARS; SCREENING BY MANAGEMENT INTERN UNDER PHYSICIAN SUPERVISION 2006 DoD Social History Combined list of available smoking, tobacco, and other social history from Department of 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 Social History Type Response Date Comment Sour e This section is an empty social history section. DoD
--- OUTSIDE RECORDS SUMMARY | 2024-03-22 01:08 | XMS_ITS | Encounter Summary ---
Author Organization [place] Address [address] [place] [address] Care Team Providers Care Kettle Chipper Name Role Phone Clinic - [facility] Primary Care P rovider Monica Recinos APRN VISUAL LEAD Unavailable Monica Recinos APRN VISUAL LEAD Primary Care Pro vider Jr Tobias MD Unavailable Encounter Details Date Type Department Care Team (Late st Contact Info) Description 04/23/2019 [facility] [address] [place] [address] Monica Recinos APRN [facility] [address] [facility] [place] [address] Social History Tobacco Use Types Packs/Day Years Used Date Smoking Tobacco: Never Smokeless Tobacco: Never Alcohol Use Standard Drinks/Week Comments Not Currently 0 (1 standard drink = 0.6 oz pur e alcohol) PHQ-2 Answer Date Recorded PHQ-2 Score 0 02/11/2019 Sex and Gender Information Value Date Recorded Sex Assigned at Female 05/03/2022 3:21 PM CDT Gender Identity Female 05/03/2022 3:21 PM CDT Sexual Orientation Straight 05/03/2022 3: 21 PM CDT documented as of this encounter Plan of Treatment Not on file documented as of this encounter Visit Diagnoses Not on filedocumented in this encounter Care Teams Kettle Chipper Relationship Specialty Start Date End Date Clinic - [facility] [address] [facility] [place] [address] PCP - General 12/27/18 12/09/20 Monica Recinos APRN VISUAL LEAD [address] [place] [address] [place] [address] PCP - General Internal Medicine - Pediatrics 12/10/20 Monica Recinos, EXTRUDER OPERATOR HELPER VISUAL LEAD [address] [place] [address] [place] [address] Assigned PCP 01/18/19 [place] [address] [address] [place] [address] Assigned Musculoskeletal Provider 02/29/24 documented as of this encounter
--- OUTSIDE RECORDS SUMMARY | 2024-03-22 01:08 | XMS_ITS | Encounter Summary ---
Author Organization [place] Address [address] [place] [address] Care Team Providers Care Research Electrician Name Role Phone Monica Recinos APRN MOISTURE METER OPERATOR Unavailable Monica Recinos APRN MOISTURE METER OPERATOR Primary Care Pro vider Encounter Details Date Type Department Care Team (Latest Contact Info) Description 01/03/2024 Travel Social History Tobacco Use Types Packs/Day [...] than three times a week 01/03/2024 Attends [employer] Not on file 01/02 Active Member [...] Answer Date Recorded PHQ-2 Score 0 01/03/2024 [facility] [place] of Occupat ional Health - Occupational Stress [...] on filedocumented in this encounter Care Teams Research Electrician Relationship Specialty Start Date End Date Monica Recinos APRN MOISTURE METER OPERATOR [address] [facility] [place] [address] PCP - General Internal Medicine - Pediatrics 12/10/20 Monica Recinos APRN MOISTURE METER OPERATOR [address] [facility] [place] [address] Assigned PCP 01/18/19 documented as of this encounter
--- OUTSIDE RECORDS SUMMARY | 2024-03-22 01:08 | XMS_ITS | Encounter Summary ---
Author Organization [place] Address [address] [place] [address] Care Team Providers Care Court Crier Name Role Phone Monica Recinos APRN FOREST FIRE EQUIPMENT OPERATOR Unavailable Monica Recinos APRN FOREST FIRE EQUIPMENT OPERATOR Primary Care Pro vider Reason for Referral * Consultation (Routine) - Pending Review Specialty Diagnoses / Procedures Referred By Cathy nelson Referred To Contact Diagnoses Right wrist pain Giovanna Deshpande MD [address] [place] [address] Referral ID Status Reason Start Date Expiration Date V isits Requested Visits Authorized [id number] Pending Review 01/03/2024 01/02/2025 1 1 Question Answer Consult Type: Foot/Ankle Type: Per Protocol Scheduling Instructions: [facility] Orthopedic Cracker Sprayer will call you to coordinate your care as prescribed by your provider. A housing management representative will call you within 2 business days to help you schedule your appointment, or you may contact the Cracker Sprayer Glory Hole Tender at: . Comments Please be aware that coverage of these services is subject to the terms and limitations of your health insurance plan. Call member services at your health plan with any benefit or coverage questions. [facility] Orthopedic Cracker Sprayer will call you to coordinate your care as prescribed by your provider. A housing management representative will call you within 2 business days to help you schedule your appointment, or you may contact the Cracker Sprayer Glory Hole Tender at: . * Diagnostic Imaging Mammo (Routine) - Pending Review Specialty Diagnoses / Procedures Referred By Cathy t Referred To Contact Radiology. Diagnoses Visit for screening mammogram Procedures *MA Screening Digital Bilateral Giovanna Deshpande MD [address] [place] [address] Referral ID Status Reason Start Date Expiration Date V isits Requested Visits Authorized [id number] Pending Review 01/03/2024 01/02/2025 1 1 Reason for Visit * Reason Comments Physical Encounter Details Date Type Department Care Team (Late st Contact Info) Description 01/03/2024 11:20 AM CDT Office Visit [facility] [address] [place] [address] Mar Daugherty MD [address] [facility] [address] [place] [address] Routine general medical examination at a health care facility (Primary Dx); Screening for cervical cancer; Hx of abnormal cervical Pap smear; Visit for screening mammogram; Right wrist pain; Bee allergy status Social History Tobacco Use Types Packs/Day Years [...] than three times a week 01/03/2024 Attends [employer] Not on file 01/02 Active Member [...] Answer Date Recorded PHQ-2 Score 0 01/03/2024 [facility] of Occupat ional Health - Occupational Stress [...] Sign Reading Time Taken Comments Blood Pressure 111/73 01/03/2024 11:25 AM CDT Pulse 77 01/03/2024 11:25 AM CDT Temperature 36.7 ??C (98 ??F) 01/03/2024 11: 25 AM CDT Respiratory Rate 24 01/03/2024 11:2 5 AM CDT Oxygen Saturation 99% 01/03/2024 11: 25 AM CDT Inhaled Oxygen Concentration - - Weight 57.1 kg (125 lb 12.8 oz) 024 11:25 AM CDT Height 157 cm (5' 1.81) 01/03/2024 11: 25 AM CDT Body Mass Index 23.15 01/03/2024 11:25 AM CDT documented in this encounter Patient Instructions * Patient Instructions* Giovanna Deshpande MD - 01/03/2024 11:20 AM CDT Consider your TdaP and covid-19 vaccines, available in the pharmacy. Preventive Care Advice This is general advice given by our system to help you stay healthy. However, your care team may have specific advice just for you. Please talk to your care team about your preventive care needs. Nutrition Eat 5 or more servings of fruits and vegetables each day. Try wheat bread, brown rice and whole grain pasta (instead of white bread, rice, and pasta). Get enough calcium and vitamin D. Check the label on foods and aim for 100% of the CROP RESEARCH SCIENTIST (recommendeddaily allowance). Lifestyle Exercise at least 150 minutes each week (30 minutes a day, 5 days a week). Do muscle strengthening activities 2 days a week. These help control your weight and prevent disease. No smoking. Wear sunscreen to prevent skin cancer. Have a dental exam and cleaning every 6 months. Yearly exams See your health care team every year to talk about: Any changes in your health. Any medicines your care team has prescribed. Preventive care, family planning, and ways to prevent chronic diseases. Shots (vaccines) HPV shots (up to age 26), if you've never had them before. Hepatitis B shots (up to age 59), if you've never had them before. COVID-19 shot: Get this shot when it's due. Flu shot: Get a flu shot every year. Tetanus shot: Get a tetanus shot every 10 years. Pneumococcal, hepatitis A, and RSV shots: Ask your care team if you need these based on your risk. Shingles shot (for age 50 and up). General health tests Diabetes screening: Starting at age 35, Get screened for diabetes at least every 3 years. If you are younger than age 35, ask your care team if you should be screened for diabetes. Cholesterol test: At age 39, start having a cholesterol test every 5 years, or more often if advised. Bone density scan (DEXA): At age 50, ask your care team if you should have this scan for osteoporosis (brittle bones). Hepatitis C: Get tested at least once in your life. STIs (sexually transmitted infections) Before age 24: Ask your care team if you should be screened for STIs. After age 24: Get screened for STIs if you're at risk. You are at risk for STIs (including HIV) if: You are sexually active with more than one person. You don't use condoms every time. You or a partner was diagnosed with a sexually transmitted infection. If you are at risk for HIV, ask about PrEP medicine to prevent HIV. Get tested for HIV at least once in your life, whether you are at risk for HIV or not. Cancer screening tests Cervical cancer screening: If you have a cervix, begin getting regular cervical cancer screening tests at age 21. Most people who have regular screenings with normal results can stop after age 65. Talk about this with your provider. Breast cancer scan (mammogram): If you've ever had breasts, begin having regular mammograms starting at age 40. This is a scan to check for breast cancer. Colon cancer screening: It is important to start screening for colon cancer at age 45. Have a colonoscopy test every 10 years (or more often if you're at risk) Or, ask your provider about stool tests like a FIT test every year or Cologuard test every 3 years. To learn more about your testing options, visit: https://www.Variab.ly/299511.pdf. For help making a decision, visit: https://bit.ly/ob53153. Prostate cancer screening test: If you have a prostate and are age 55 to 69, ask your provider if you would benefit from a yearly prostate cancer screening test. Lung cancer screening: If you are a current or former smoker age 50 to 80, ask your care team if ongoing lung cancer screenings are right for you. For informational purposes only. Not to replace the advice of your health care provider. Copyright ?? 2022 [facility]. All rights reserved. Clinically reviewed by the [facility] Transitions Program. Creditable [id number] - REV 11/01. documented in this encounter Progress Notes * Mar Daugherty MD - 01/03/2024 11:20 AM CDT Images from the original note were not included. Preventive Care Visit [facility] ANDREA Daugherty MD, Internal Medicine - Pediatrics Jan 03, 2024 Assessment & Plan (Z00.00) Routine general medical examination at a health care facility (primary encounter diagnosis) Comment: Seen today for annual visit. Overall doing well. Seeing naturopathic provider for inflammation symptoms, advised patient would be helpful to bring in a list of her supplements to next visit.Health maintenance reviewed and updated as below. Will plan to defer general screening labs today. Patient concerns/questions addressed adequately. (Z12.4) Screening for cervical cancer (Z87.42) Hx of abnormal cervical Pap smear Comment: History of JOHN-3 status post LEEP in 2004. Since then has had several abnormal Pap smears last abnormal Pap 2015 which was Negative ECC. Most recent Pap smear in 2020 negative for HPV and NIL. Due for repeat screening per guidelines. exam reassuring, will follow-up results with patient. Plan: Pap screen with HPV - recommended age 30 - 65 years (Z12.31) Visit for screening mammogram Comment: 43-year-old female who is not previously screening for breast cancer. Due for first mammography. Family history notable for breast cancer in grandmother, no first-degree relative with breastcancer per patient. Plan: *MA Screening Digital Bilateral (M25.531) Right wrist pain Comment: Pain in right wrist with extension while bearing weight such as implant position. Distressing to patient and she is quite active and enjoys doing yoga. On exam normal range of motion and unable to elicit pain. Nontender to palpation. Unable to palpate any mass and/or cyst. Discussed with patient will refer to sports medicine for further evaluation and possible imaging. Plan: Orthopedic Cracker Sprayer Referral (Z91.030) Bee allergy status Comment: Due for new EpiPen prescription as prior has . Plan: EPINEPHrine (ANY BX GENERIC EQUIV) 0.3 MG/0.3ML injection 2-pack Counseling Appropriate preventive services were discussed with this patient, including applicable screening asappropriate for fall prevention, nutrition, physical activity, Tobacco-use cessation, weight loss and cognition. Checklist reviewing preventive services available has been given to the patient. Reviewed patient's diet, addressing concerns and/or questions. FUTURE APPOINTMENTS: - Follow-up visit in 1 year for annual wellness visit. Or as needed. Tor Salgado is a 43 year old, presenting for the following: Physical 01/03/2024 11:21 AM Additional Questions Roomed by Luciana Accompanied by Self 01/03/2024 11:21 AM Patient Reported Additional Medications Patient reports taking the following new medications none Health Care Directive Patient does not have a Health Care Directive or Living Will: Discussed advance care planning with patient; information given to patient to review. FATMATA Boss is a 43-year-old female with history of JOHN 3 cervical lesion status posttreatment, otherwise healthy. Here today for annual wellness visit. Major changes in health since last time with primary provider. Is hopeful to discuss right wrist pain. Notes that she has had pain in her right wrist for approximately 1 year. Notices it primarily with forced extension when bearing weight such as in a plank or handstand. Patient does frequent yoga andfinds this bothersome. Has not tried medications or ice. Not bracing. No radiating numbness or tingling. No mass. Does not have pain at rest. States that her chiropractor looked at the area and felt she may have an internal cyst that could be contributing. Notes that she think she is due for a Pap smear. Has not had any symptoms of abnormal bleeding or pain. Last Pap smear normal in 2020. Is following with glass carrier to help with inflammation, taking several supplements including B vitamin complex and other vitamins which she cannot recall at this time. [facility] 01/03/2024 General Health How would you rate your overall physical health? Excellent Feel stress (tense, anxious, or unable to sleep) Not at all 01/03/2024 Nutrition Three or more servings of calcium each day? Yes Diet: Regular (no restrictions) How many servings of fruit and vegetables per day? 4 or more How many sweetened beverages each day? 0-1 01/03/2024 Exercise Days per week of moderate/strenous exercise 7 days 01/03/2024 Social Factors Frequency of gathering with friends or relatives More than three times a week Worry food won't last until get money to buy more No Food not last or not have enough money for food? No Do you have housing? Yes Are you worried about losing your housing? No Lack of transportation? No Unable to get utilities (heat,electricity)? No 01/03/2024 Dental Dentist two times every year? Yes 01/03/2024 TB Screening Were you born outside of the [place]? No Today's PHQ-2 Score: 01/03/2024 11:05 AM PHQ-2 (??1998 Pfizer) Q1: Little interest or pleasure in doing things 0 Q2: Feeling down, depressed or hopeless 0 PHQ-2 Score 0 Q1: Little interest or pleasure in doing things Not at all Q2: Feeling down, depressed or hopeless Not at all PHQ-2 Score 0 01/03/2024 Substance Use Alcohol more than 3/day or more than 7/wk No Do you use any other substances recreationally? No Social History Tobacco Use Smoking status: Never Smokeless tobacco: Never Vaping Use Vaping Use: Never used Substance Use Topics Alcohol use: Yes Drug use: Never 08/29/2022 LAST [facility]-7 RESULTS 1st degree relative breast or ovarian cancer Yes - grandmother Any relative bilateral breast cancer Yes Any male have breast cancer No Any ONE woman have BOTH breast AND ovarian cancer Yes Any woman with breast cancer before 50yrs Yes 2 or more relatives with breast AND/OR ovarian cancer Yes 2 or more relatives with breast AND/OR bowel cancer Yes Mammogram Screening - Mammogram every 1-2 years updated in Health Maintenance based on mutual decision making 01/03/2024 STI Screening New sexual partner(s) since last STI/HIV test? (!) YES History of abnormal Pap smear: YES - updated in Problem List and Health Maintenance accordingly Latest Ref Rng & Units 03/11/2021 4:30 PM 03/11/2021 12:06 PM 02/11/2019 6:38 PM PAP / HPV PAP (Historical) NIL HPV 16 DNA NEG^Negative Negative Negative HPV 18 DNA NEG^Negative Negative Negative Other HR HPV NEG^Negative Negative Negative ASCVD Risk Mechanical Expert The 10-year ASCVD risk score (Abhijeet LARSON, et al., 2019) is: 0.3% Values used to calculate the score: Age: 43 years Sex: Female Is Non- : No Diabetic: No Tobacco smoker: No Systolic Blood Pressure: 111 mmHg Is BP treated: No HDL Cholesterol: 63 mg/dL Total Cholesterol: 173 mg/dL 01/03/2024 Contraception/Family Planning Questions about contraception or family planning No Reviewed and updated as needed this visit by Provider Past Medical History: Diagnosis Date Abnormal Pap smear of cervix Past Surgical History: Procedure Laterality Date LEEP TX, CERVICAL 2004 OB History Para Term AB Living 1 1 1 0 0 1 SAB IAB Ectopic Multiple Live Births 0 0 0 0 0 # Outcome Date GA Lbr Duncan/2nd Weight Sex Delivery Anes PTL Lv 1 Term Review of Systems Constitutional, HEENT, cardiovascular, pulmonary, gi and gu systems are negative, except as otherwise noted. Objective Exam BP 111/73 Pulse 77 Temp 98 ??F (36.7 ??C) (Oral) Resp 24 Ht 1.57 m (5' 1.81) Wt 57.1 kg (125 lb 12.8 oz) LMP 12/26/2023 SpO2 99% BMI 23.15 kg/m?? Estimated body mass index is 23.15 kg/m?? as calculated from the following: Height as of this encounter: 1.57 m (5' 1.81). Weight as of this encounter: 57.1 kg (125 lb 12.8 oz). Physical Exam GENERAL: alert and no distress EYES: Eyes grossly normal to inspection, PERRL and conjunctivae and sclerae normal HENT: normal cephalic/atraumatic, nose and mouth without ulcers or lesions, oropharynx clear, and oral mucous membranes moist NECK: no adenopathy, no asymmetry, masses, or scars RESP: lungs clear to auscultation - no rales, rhonchi or wheezes CV: regular rate and rhythm, normal S1 S2, no S3 or S4, no murmur, click or rub, no peripheral edema ABDOMEN: soft, nontender, no hepatosplenomegaly, no masses and bowel sounds normal MS: no gross musculoskeletal defects noted, no edema SKIN: no suspicious lesions or rashes NEURO: Normal strength and tone, mentation intact and speech normal PSYCH: mentation appears normal, affect normal/bright Signed Electronically by: Mar Daugherty MD Associated attestation - Giovanna Deshpande MD - 01/04/2024 8:50 AM CDT Physician Attestation I, Giovanna Deshpande MD, saw this patient and agree with the findings and plan of care as documented in the note. Items personally reviewed/procedural attestation: vitals, labs and agree with the interpretation documented in the note. Giovanna Deshpande MD Internal Medicine - Pediatrics documented in this encounter Plan of Treatment Scheduled Referrals Name Type Priority Associated Diagnoses Orde r Schedule Orthopedic Cracker Sprayer Referral Referral Routine Right wrist pain Expected: 01/03/2024 (Approximate), Expires: 01/02/2025 documented as of this encounter Procedures Procedure Name Priority Date/Time Associated Diagnosis Comments HPV HOLD (LAB ONLY) Routine 01/03/2024 1 2:00 PM CDT Screening for cervical cancer Hx of abnormal cervical Pap smear GYNECOLOGIC CYTOLOGY Routine 01/03/2024 12:00 PM CDT Screening for cervical cancer Hx of abnormal cervical Pap smear HPV HIGH RISK TYPES DNA CERVICAL Routine 01/03/2024 12:00 PM CDT Screening for cervical cancer Hx of abnormal cervical Pap smear documented in this encounter Results * *MA [...] radiographic evidence of malignancy. Giovanna Deshpande MD [facility] M[facility]MO[facility] ORDPoncho RODRIGUEZ * HPV High Risk Types DNA Cervical (01/03/2024 12:00 PM CDT) Other HR HPV Negative Negative 01/08/2024 3:59 PM CDT MOLECULAR DIAGNOSTICS HPV16 DNA Negative Negative 01/08/2024 3:59 PM CDT MOLECULAR DIAGNOSTICS HPV18 DNA Negative Negative 01/08/2024 3:59 PM CDT MOLECULAR DIAGNOSTICS FINAL DIAGNOSIS This patient's sample is negative for HPV DNA. This test was developed and its performance characteristics determined by the [facility], Molecular Diagnostics Laboratory. It has not been [...] ORDERABL ES MOLECULAR DIAGNOSTICS Molecular Diagnostics [address], [address] [place] [address], [facility] * HPV Hold (Lab Only) (01/03/2024 12:00 PM CDT) Brushing CERVIX UTERI STRUCTURE / Unknown Non-blood Collection / Unknown 01/03/2024 12:00 PM CDT 01/08/2024 8:03 AM CDT Giovanna LAST - ROULA THAYER MOLECULAR DIAGNOSTICS Molecular Diagnostics [address] [facility] [address] [facility], [address] [place] [id number] * Pap screen with HPV - [...] component of this testing was completed at [facility] 01/05/2024 1:14 PM CDT SPECIALTY LABS Brushing CERVIX UTERI STRUCTURE / Unknown Non-blood Collection / Unknown 01/03/2024 12:00 PM CDT 01/03/2024 1:12 PM CDT Giovanna LAST - ROULA THAYER [facility] Specialty Lab [address], [address] [place] [id number], [facility] documented in this encounter Visit Diagnoses Diagnosis Routine general medical examination at a health care facility- Primary Screening for cervical cancer Screening for malignant neoplasm of the cervix Hx of abnormal cervical Pap smear Personal history of other genital system and obstetric disorders Visit for screening mammogram Other screening mammogram Right wrist pain Pain in joint, forearm Bee allergy status Allergy to insects and arachnids Visit for screening mammogram Other screening mammogram documented in this encounter Care Teams Court Crier Relationship Specialty Start Date End Date Monica Recinos APRN FOREST FIRE EQUIPMENT OPERATOR [address] [place] [address] [place] [address] PCP - General Internal Medicine - Pediatrics 12/10/20 Monica Recinos APRN FOREST FIRE EQUIPMENT OPERATOR [address] [place] [address] [place] [address] Assigned PCP 01/18/19 documented as of this encounter
[2024-03-22 01:09] VITALS: PULSE 82; RESP 18
== END 2024-03-22 01:10 | disposition home or self-care (01) ==
LOC: ED 01:04
PROVIDERS: Emergency Provider Family Medicine
DX: T63.441A Toxic effect of venom of bees, accidental (unintentional), initial encounter (principal)
CPT/HCPCS: 99282; A9270